=== PATIENT | female | born 1970 | race Caucasian/White ===

== ENCOUNTER 2020-06-05 08:44 | Emergency (ER) | payer BC, SELFPAY ==
[2020-06-05 09:15] VITALS: BP 142/82; PULSE 85; RESP 24; TEMP 36.7; O2SAT 98
--- NOTE | 2020-06-05 09:43 | ED.ABDPAIN ---
HPI - Abdominal Pain General Chief Complaint: Upper Respiratory Infection Stated Complaint: stomach pains radiating to right side Time Seen by Provider: 06/05/20 09:35 Source: patient Mode of arrival: ambulatory Limitations: no limitations History of Present Illness HPI narrative: Joyce Hodge is a 50-year-old female who receives no medical care who comes to the [facility] with right upper quadrant tenderness that radiates to her back and nausea and vomiting that started at 6 PM last night. Her tenderness is a 9 out of 10 she is afebrile currently blood pressure is elevated but denies any treatment for hypertension Related Data Home Medications Medication Instructions Recorded Confirmed No Home Medications 06/05/20 06/05/20 Allergies Allergy/AdvReac Type Severity Reaction Status Date / Time cephalexin Allergy Mild Unknown Verified 06/05/20 09:22 Penicillins Allergy Mild Unknown Verified 06/05/20 09:22 Review of Systems Review of Systems: Narrative: CONSTITUTIONAL: Denies fever, chills, sweats. EYES: Denies visual changes, redness, discharge. ENT: Denies rhinorrhea, congestion, sore throat, otalgia. CARDIOVASCULAR: Denies chest pain, palpitations, edema. RESPIRATORY: Denies dyspnea, wheezing, cough GASTROINTESTINAL has abdominal pain, has nausea, has vomiting, has diarrhea. Right upper quadrant abdominal pain that radiates to the right back GENITOURINARY: Denies dysuria, hematuria, abnormal discharge SKIN: Denies rash or itching. NEUROLOGIC: Denies numbness, or focal weakness. PSYCHIATRIC: Denies anxiety or depression. [facility] Past Medical History Medical History No acute medical problems Family History Family History (Updated 06/05/20 @ 09:45 by Khloe Casey CNP) Other No acute medical problems Social History Social History (Updated 06/05/20 @ 09:46 by Khloe Casey CNP) Smoking status: Never smoker Alcohol intake: current Comments At time of signature, I agree with nursing past medical, surgical, social and family history. There is no relevant family history pertinent to the presenting complaint. Exam Narrative: Exam Narrative: GENERAL: This is a well-nourished, well-developed patient, patient appears to be in pain HEAD: normocephalic, atraumatic. EYES: Sclera clear/white. Vision is grossly intact. EARS: External ears normal, auditory canals clear and without drainage, TMs normal without perforation. Hearing grossly intact. NOSE: External nose normal without nasal discharge, nares without redness, no rhinorrhea. THROAT: Mucous membranes moist, posterior pharynx pink NECK: Neck supple, non-tender CARDIOVASCULAR: Regular rate and rhythm without murmurs, gallops, or rubs. RESPIRATORY: Clear to auscultation. Breath sounds equal bilaterally. No wheezes, rales, or rhonchi. GASTROINTESTINAL: Abdomen soft, 9/10 pain on palpation with right CVA tender SKIN: warm, intact with no suspicious lesions or rash, good texture and turgor. NEURO: awake, alert, and oriented to person, place and time. There were no obvious focal neurologic abnormalities. Steady gait EXTREMITIES: Normal range of motion. BACK: Nontender without deformity Course Course Emergency Course: Right upper quadrant abdominal pain that radiates to the back UA is negative, but is negative Patient be transferred to the emergency room for further evaluation Vital Signs Vital signs: Vital Signs Temperature 98.1 F 06/05/20 09:15 Pulse Rate 85 06/05/20 09:15 Respiratory Rate 24 H 06/05/20 09:15 Blood Pressure 142/82 H 06/05/20 09:15 Pulse Oximetry 98 06/05/20 09:15 Temperature 98.1 F 06/05/20 09:15 Pulse Rate 85 06/05/20 09:15 Respiratory Rate 24 H 06/05/20 09:15 Blood Pressure 142/82 H 06/05/20 09:15 Pulse Oximetry 98 06/05/20 09:15 MDM - Abdominal Pain Lab Data Labs: Urine Glucose Negative
== END 2020-06-05 10:00 | disposition short-term general hospital (02) ==
PROVIDERS: Emergency Provider Nurse Practitioner
DX: R10.11 Right upper quadrant pain (principal); Z20.822 Contact with and (suspected) exposure to COVID-19
CPT/HCPCS: 81003; 87426; 99213; C9803; G0463

== ENCOUNTER 2020-06-05 10:46 | Observation (INO) | payer BC, SELFPAY ==
--- NOTE | ~2020-06-05 | CT_ITS ---
EXAMINATION: CT abdomen pelvis w con EXAM DATE: 06/05/2020 12:24 INDICATION: Right upper quadrant pain. TECHNIQUE: Spiral CT of the abdomen and pelvis was performed following intravenous injection of 100 m L Omnipaque 350. Axial, coronal and sagittal images were reviewed. The dose-length product (DLP) fo r this examination was 805.37 mGy-cm. The exposure was tailored according to patient size (auto mA e xposure control), and iterative reconstruction (ASIR) was used as additional dose reduction technique . There is no prior study for comparison. FINDINGS: The liver, spleen, adrenal glands and pancreas are unremarkable. There is 3 cm gallstone i n the gallbladder neck. There is mildly indistinct gallbladder wall without pneumatosis. Gallbladder is moderately distended. Possible trace fluid between the gallbladder and liver. Possible acute hernando cystitis. Portal and splenic veins are patent. Kidneys enhance symmetrically. There is no hydronep hrosis. The uterus is not identified and has likely been surgically resected. The bladder is unrem arkable. There is no retroperitoneal or pelvic lymphadenopathy. There is mild scattered arterioscl erotic disease. Appendix is located below the right liver lobe, near the gallbladder, but is unremarkable. The stoma ch and small bowel are unremarkable. There is mild sigmoid colonic diverticulosis. There is no adjac ent inflammatory change to suggest diverticulitis. There is expected amount of colonic stool. No fr ee intraperitoneal gas. The heart is normal in size. There are no pericardial or pleural effusions . There is left lower lobe nodule measuring 1.1 cm, with central calcification, granuloma or hamarto ma. Several smaller satellite granulomata. There are no osteoblastic or osteolytic lesions identifie d. IMPRESSION: 1. Cholelithiasis and possible acute cholecystitis. Clinical correlation, consider ultrasound. 2. Mild sigmoid diverticulosis. Reviewed, dictated and finalized at location [facility]. DYER RECESSED VAT IMPRESSION: 1. Cholelithiasis and possible acute cholecystitis. Clinical correlation, cons ider ultrasound. 2. Mild sigmoid diverticulosis.
--- NOTE | ~2020-06-05 | US_ITS ---
US abdomen limited DATE: 06/05/2020 13:07 INDICATION: Right upper quadrant abdominal pain, emesis TECHNIQUE: Real-time imaging of liver, pancreas, gallbladder areas COMPARISON: June 05, [address] abdomen pelvis FINDINGS: No hepatic or pancreatic space-occupying mass lesion is evident. Normal hepatopedal portal venous flow direction. There is a fixed approximately 2 x 2.7 cm filling defect of the neck of the gallbladder, which shadow ing, consistent with large gallstone. There is comet tail artifact suggesting adenomyomatosis of the gallbladder. Gallbladder wall measures in excess of 4 mm maximal thickness. Negative sonographic Murp hy's sign. However, the patient is reportedly on pain medication which may invalidate this time. The common bile duct measures 5.6 mm, normal. IMPRESSION: 2.6 cm stone in gallbladder neck, gallbladder wall thickening. Consider acute cholecystit is. If further evaluation for acute cholecystitis is desired, consider radionuclide hepatobiliary scan. Comment tail artifact, which may be consistent with adenomyomatosis of the gallbladder Reviewed, dictated and finalized at [facility]. Reviewed, dictated and finalized at location A. IAL LOAN OFFICER IMPRESSION: 2.6 cm stone in gallbladder neck, gallbladder wall thickening. Cons ider acute cholecystitis. If further evaluation for acute cholecystitis is desired, consider radionuclide hepatobiliary scan. Comment tail artifact, which may be consistent with adenomyomatosis of the gall bladder
[2020-06-05 10:49] VITALS: BP 147/79; PULSE 80; RESP 18; TEMP 36; O2SAT 100
[2020-06-05 11:05] LABS: Basophils Absolute Auto 0.1 K/mm3 (0.0-0.1); Basophils Percent Auto 0.8 % (0.2-1.2); Eosinophils Percent Auto 0.5 % (0-4.4); Hematocrit 41.6 % (37.0-47.0); Hemoglobin 13.6 g/dL (12.0-15.0); Immature Granulocyte Absolute 0.06 K/mm3 (0.00-0.031); Immature Granulocyte Percent A 0.8 % (0-0.5); Lymphocytes Absolute Auto 0.99 K/mm3 (0.9-3.2); Lymphocytes Percent Auto 12.6 % (18.3-44.2); Mean Corpuscular HGB Conc 32.7 g/dl (32-36); Mean Corpuscular Hemoglobin 28.2 pg (26-34); Mean Corpuscular Volume 86.1 fl (80-100); Mean Platelet Volume 9.8 fl (7.4-10.4); Monocytes Absolute Auto 0.6 K/mm3 (0.1-0.6); Monocytes Percent Auto 7.1 % (2.6-8.5); Neutrophils Absolute Auto 6.1 K/mm3 (1.3-6.7); Neutrophils Percent Auto 78.2 % (45.5-73.1); Platelet Count Result 313 k/mm3 (150-375); Red Blood Count 4.83 M/mm3 (4.2-5.4); Red Cell Distribution Width 13.6 % (11.5-14.5); White Blood Count 7.9 K/mm3 (4.5-10.0)
[2020-06-05 11:18] LABS: Alanine Aminotransferase 19 U/L (4-35); Albumin Level 4.5 g/dL (3.5-5.1); Alkaline Phosphatase 66 U/L (38-126); Anion Gap 7 mmol/L (8-16); Aspartate Amino Transferase 23 U/L (14-36); Bilirubin,Total 0.4 mg/dL (0.2-1.3); Blood Urea Nitrogen 10 mg/dL (7-17); Calcium 9.3 mg/dL (8.4-10.2); Carbon Dioxide 26 mmol/L (22-30); Chloride 105 mmol/L (98-107); Estimated CRCL calculation 81 ml/min; Estimated Glomerular Filt Rate > 60; Glucose 120 mg/dL (65-105); Lipase 96 U/L (23-300); Potassium 4.1 mmol/L (3.4-5.0); Sodium 138 mmol/L (137-145)
--- NOTE | 2020-06-05 11:29 | ED.ABDPAIN ---
HPI - Abdominal Pain General Chief Complaint: Abdominal Pain Stated Complaint: RUQ pain Time Seen by Provider: 06/05/20 11:28 Source: patient Limitations: no limitations History of Present Illness HPI narrative: Patient is 50 years old white female presents with right upper quadrant pain associated with nausea, vomiting and the diarrhea started last night at 6 PM. Patient reported that the pain gets worse with eating or any movement, get better probably if she remaining is stable. Patient denies any fever, chills, COVID-19 infection or exposure to anybody known having COVID-19. History of hysterectomy. On no medications. Patient does not smoke or drink or uses marijuana. Related Data Home Medications Medication Instructions Recorded Confirmed No Home Medications 06/05/20 06/05/20 Allergies Allergy/AdvReac Type Severity Reaction Status Date / Time cephalexin Allergy Mild Unknown Verified 06/05/20 10:52 Penicillins Allergy Mild Unknown Verified 06/05/20 10:52 Review of Systems Review of Systems: Narrative: CONSTITUTIONAL: Denies fever, chills, or sweats. EYES: Denies visual changes, redness, or discharge. ENT: Denies rhinorrhea, congestion, sore throat, or otalgia. CARDIOVASCULAR: Denies chest pain, palpitations, or edema. RESPIRATORY: Denies cough or dyspnea. GASTROINTESTINAL: Denies abdominal pain, nausea, vomiting, or diarrhea. GENITOURINARY: Denies dysuria or hematuria. SKIN: Denies rash or itching. MUSCULOSKELETAL: Denies back pain, joint pain, or myalgia. NEUROLOGIC: Denies headache, numbness, or weakness. PSYCHIATRIC: Denies anxiety or depression. PMFSH Past Medical History Medical History No acute medical problems Family History Family History Other No acute medical problems Social History Social History Smoking status: Never smoker Alcohol intake: current Exam Narrative: Exam Narrative: General appearance: Well-developed, well-nourished Skin: Normal color Head: Normocephalic, nontraumatic Eyes: Clear conjunctiva ENT: Oropharynx normal, ears normal, nose normal Neck: Supple, nontender Chest and respiratory: Airway patent, no respiratory distress, no accessory muscle use Heart: Regular rate/rhythm Abdomen: Soft, diffuse tenderness epigastric and right upper quadrant, no organomegaly, quiet bowel sounds Vascular: Normal peripheral pulses, normal capillary refill. Musculoskeletal: Normal range of motion, nontender back Neurologic: Alert and oriented ?3, [employer] is normal as tested, no gross motor deficit Course Course Emergency Course: Improving/stable Consultations Consultation #1: Dr. Hung Date: 06/05/20 Time: 14:29 Vital Signs Vital signs: Vital Signs Temperature 36.0 C L 06/05/20 10:49 Pulse Rate 80 06/05/20 10:49 Respiratory Rate 18 06/05/20 10:49 Blood Pressure 147/79 H 06/05/20 10:49 Pulse Oximetry 100 06/05/20 10:49 Temperature 36.0 C L 06/05/20 10:49 Pulse Rate 80 06/05/20 14:12 Respiratory Rate 16 06/05/20 14:12 Blood Pressure 149/85 H 06/05/20 14:12 Pulse Oximetry 100 06/05/20 14:12 MDM - Abdominal Pain MDM Narrative Medical decision making narrative: Patient presents with epigastric, right upper quadrant pain with nausea and vomiting. Labs, CT abdomen pelvis with IV contrast, IV morphine and Zofran and a fluid ordered. Pancreatitis, cholecystitis, gastroenteritis and diverticulitis are my concern. Further plan to follow Differential Diagnosis Differential diagnosis: Likely abdominal pain, diverticulitis, ga
[2020-06-05] MEDS: SODIUM CHLORIDE 0.9% IV 1,000 ML 999 ML IV CONT (11:40)
[2020-06-05 11:43] LABS: Add Urine Microscopic? YES; Appearance Urine Cloudy (Clear); Bacteria Urine 4+ /hpf; Bilirubin Urine Negative (Negative); Blood Urine Negative (Negative); Color Urine Yellow (Yellow); Glucose Urine UA Negative (Negative); Ketones Urine Negative (Negative); Leukocyte Esterase Ur Negative LEU/UL (Negative); Mucus Urine Rare /lpf; Nitrate Urine Negative (Negative); Protein Urine Negative (Negative); RBC Urine 0-2 /hpf (0-2); Specific Grav Ur 1.023 (1.001-1.035); Squamous Epithelial Cell Urine Many /hpf (Few); Urobilinogen Urine Negative mg/dL (<2.0)
[2020-06-05] MEDS: MORPHINE SULFATE (*CRX) 4 MG/ML INJ IV PUSH ×2 (11:47→15:42)
[2020-06-05] MEDS: ONDANSETRON INJ 4 MG/2 ML VIAL IV PUSH (11:47)
[2020-06-05 12:47] VITALS: BP 143/80; PULSE 72; RESP 16; O2SAT 97
[2020-06-05 14:12] VITALS: BP 149/85; PULSE 80; RESP 16; O2SAT 100
[2020-06-05] MEDS: metroNIDAZOLE 500 MG/ISO 100ML 500 MG/100 ML BAG 100 MG IVPB (14:12)
[2020-06-05 15:18] VITALS: BP 131/85; PULSE 81; RESP 16; O2SAT 98
[2020-06-05] MEDS: SODIUM CHLORIDE 0.9% IV 1,000 ML 125 ML IV CONT (16:12)
--- NOTE | 2020-06-05 16:18 | PM.IMHP ---
H&P: HPI History of Present Illness Date/Time: 06/05/20 16:18 Chief Complaint: Epigastric abdominal pain, vomiting Narrative: Joyce Lo is a 50 year old female with no significant past medical history, who presented to the ER with complaints of epigastric abdominal pain radiating to the RUQ and back. She reports a sudden onset of this pain around 6 pm last night, not long after eating fried fish and onion rings for dinner. She had associated nausea, vomiting, and diarrhea. She reports pain improved overnight. She then drank liquids upon waking this morning and the severe abdominal pain returned and she immediately vomited. She then presented to the ER for evaluation. CT Scan of the abdomen and pelvis showed a 3 cm gallstone in the gallbladder neck with mildly indistinct gallbladder wall without pneumatosis, moderate gallbladder distention, and possible trace fluid between the gallbladder and liver. Abdominal ultrasound showed a 2.6 cm stone in gallbladder neck and gallbladder wall thickening. Labs were unremarkable. Our service was contacted by the ER physician for surgical evaluation of acute cholecystitis. Vital signs are stable in the ER. The patient is now seen in the ER. She reports that she is still having abdominal pain that is mild, but becomes more severe with any movement or palpation. Denies fever or chills. No other complaints at this time. Review of Systems Review of Systems: All systems reviewed & are unremarkable except as noted in HPI and below Constitutional: Constitutional: Reports as per HPI, Denies chills, Denies fatigue, Denies fever(s), Denies headache(s) and Denies weakness Eyes: Eyes: Reports no additional eye complaints, Denies change in vision, Denies dry eyes and Denies eye pain ENT: Reports system reviewed and no additional complaints, except as documented, Denies dysphagia, Denies dizziness, Denies headache(s) and Denies hearing loss Cardiovascular: Cardiovascular: Reports no additional cardiovascular complaints, Denies chest pain, Denies pedal edema, Denies leg edema, Denies lightheadedness, Denies radiating jaw, neck or arm pain and Denies dyspnea Respiratory: Respiratory: Reports no additional respiratory complaints, Denies cough, Denies hemoptysis, Denies dyspnea and Denies wheezing Gastrointestinal: Gastrointestinal: Reports as per HPI, Reports no additional gastrointestinal complaints, Reports abdominal pain, Denies melena, Denies bloating, Denies hematochezia, Reports diarrhea, Reports nausea and Reports vomiting Genitourinary: Genitourinary: Denies hematuria and Denies dysuria Musculoskeletal: Musculoskeletal: Reports no additional musculoskeletal complaints, Denies abnormal gait, Denies deformity, Denies joint swelling, Denies numbness and Denies tingling Integumentary/Breasts: Skin/Breast: Denies new lesions, Denies rash and Denies wounds Neurologic: Reports system reviewed and no additional complaints, except as documented, Denies abnormal gait, Denies dizziness, Denies headache(s), Denies numbness, Denies tingling and Denies weakness Psychiatric: Psychiatric: Reports no additional psychiatric complaints, Denies anxiety and Denies depression [facility] Past Medical History Medical History No acute medical problems Surgical History Surgical History History of partial hysterectomy Open partial hysterectomy in 2006 Family History Family History Mother Gallbladder disease Other No acute medical problems Social History Social History Smoking status: Former smoker Alcohol intake: never Substance use: never Living arrangements: with friend(s) Additional living arrangements comments: Patient lives at home with her boyfriend. She is not and has no children. Occupatio
--- NOTE | 2020-06-05 16:20 | ADMGEN ---
This patient, Joyce Lo, was admitted to Medical Room 242-. Patient/family oriented to hospital policies and general routines including ID bracelet, bed and alarms, visiting hours, pain management, procedures, bathroom and other care routines, personal items, smoking policy, room service/diet, and visiting hours. Information on how to activate the Rapid Response Team has been discussed. Patient/Family are encouraged to report perceived risks to care and to ask questions if they do not understand what they are told or what they should do.
--- NOTE | 2020-06-05 16:28 | WPDANESEPPF ---
Anes - Initial Pre Proc Eval Procedure: Operation Date: 06/06/20 09:30 Proposed Procedures p Laparoscopic Cholecystectomy - Chasity Hung MD Date/Time: 06/05/20 16:28 Surgeon: Chasity Hung MD Pre Op Diagnosis: Cholecystitis Patient Data Age: 50 Gender: F Height: 1.57 m Weight: 83.9 kg Last Vital Signs Temp 36.0 C L 06/05/20 10:49 Pulse 81 06/05/20 15:18 Resp 16 06/05/20 15:18 BP 131/85 06/05/20 15:18 Pulse Ox 98 06/05/20 15:18 Allergies Allergy/AdvReac Type Severity Reaction Status Date / Time cephalexin Allergy Mild Unknown Verified 06/05/20 17:07 Penicillins Allergy Mild Unknown Verified 06/05/20 17:07 Home Medications Medication Instructions Recorded Confirmed Type No Home Medications 06/05/20 06/05/20 History Laboratory Tests 06/05/20 06/05/20 06/05/20 10:56 10:56 11:26 WBC 7.9 K/mm3 K/mm3 (4.5-10.0) RBC 4.83 M/mm3 M/mm3 (4.2-5.4) Hgb 13.6 g/dL g/dL (12.0-15.0) Hct 41.6 % % (37.0-47.0) MCV 86.1 fl fl (80-100) MCH 28.2 pg pg (26-34) MCHC 32.7 g/dl g/dl (32-36) RDW 13.6 % % (11.5-14.5) Plt Count 313 k/mm3 k/mm3 (150-375) MPV 9.8 fl fl (7.4-10.4) Immature Gran % (Auto) 0.8 % H % (0-0.5) Neut % (Auto) 78.2 % H % (45.5-73.1) Lymph % (Auto) 12.6 % L % (18.3-44.2) [place] % (Auto) 7.1 % % (2.6-8.5) Eos % (Auto) 0.5 % % (0-4.4) Baso % (Auto) 0.8 % % (0.2-1.2) Lymph # (Auto) 0.99 K/mm3 K/mm3 (0.9-3.2) [place] # (Auto) 0.6 K/mm3 K/mm3 (0.1-0.6) Eos # (Auto) 0.0 K/mm3 K/mm3 (0-0.3) Baso # (Auto) 0.1 K/mm3 K/mm3 (0.0-0.1) Abs Immat Gran (auto) 0.06 K/mm3 H K/mm3 (0.00-0.031) Absolute Neuts (auto) 6.1 K/mm3 K/mm3 (1.3-6.7) Absolute Nucleated RBC 0.0 K/mm3 K/mm3 (0.0-0.012) Nucleated RBC % 0.0 % % (0.0-0.2) Sodium 138 mmol/L mmol/L (137-145) Potassium 4.1 mmol/L mmol/L (3.4-5.0) Chloride 105 mmol/L mmol/L (98-107) Carbon Dioxide 26 mmol/L mmol/L (22-30) Anion Gap 7 mmol/L L mmol/L (8-16) BUN 10 mg/dL mg/dL (7-17) Creatinine 0.70 mg/dL mg/dL (0.7-1.0) Estim Creat Clear Calc 81 ml/min ml/min Estimated GFR > 60 (59 - ) Glucose 120 mg/dL H mg/dL (65-105) Calcium 9.3 mg/dL mg/dL (8.4-10.2) Total Bilirubin 0.4 mg/dL mg/dL (0.2-1.3) AST 23 U/L U/L (14-36) ALT 19 U/L U/L (4-35) Alkaline Phosphatase 66 U/L U/L (38-126) Total Protein 8.0 g/dL g/dL (6.3-8.2) Albumin 4.5 g/dL g/dL (3.5-5.1) Lipase 96 U/L U/L (23-300) Urine Color Yellow (Yellow) Urine Appearance Cloudy H (Clear) Urine pH 6.0 (5.0-9.0) Ur Specific [place] 1.023 (1.001-1.035) Urine Protein Negative mg/dL mg/dL (Negative) Urine Glucose (UA) Negative mg/dL mg/dL (Negative) Urine Ketones Negative mg/dL mg/dL (Negative) Ur Blood (Man) Negative (Negative) Urine Nitrate Negative (Negative) Urine Bilirubin Negative (Negative) Urine Urobilinogen Negative mg/dL mg/dL (<2.0) Leukocyte Esterase Rfl Negative KENJI/UL KENJI/UL (Negative) Urine RBC 0-2 /hpf /hpf (0-2) Urine WBC 4-6 /hpf H /hpf Ur Squamous Epith Cells Many /hpf H /hpf (Few) Urine Bacteria 4+ /hpf H /hpf Hyaline Casts 1-2 /lpf /lpf (None) Urine Mucus Rare /lpf /lpf Patient hx anesthesia problems: none Family hx anesthesia problems: none PMFSH Past Medical History Medical History Asthma No acute medical problems Obes
[2020-06-05 20:00] VITALS: PULSE 81; RESP 16; O2SAT 98
[2020-06-05 22:00] VITALS: BP 128/70; PULSE 86; RESP 18; TEMP 36.6; O2SAT 96
[2020-06-06] VITALS (10 sets, daily range): BP systolic 114–135; BP diastolic 65–81; PULSE 79–97; RESP 13–28; TEMP 36.3–36.9; O2SAT 92–97
[2020-06-06] MEDS: SODIUM CHLORIDE 0.9% IV 1,000 ML 125 ML IV CONT ×2 (01:45→15:06)
--- NOTE | 2020-06-06 07:11 | WPDANESEPP ---
Anes - Eval Pre Procedure Procedure: Operation Date: 06/06/20 10:00 Proposed Procedures p Laparoscopic Cholecystectomy - Chasity Hung MD Date/Time: 06/06/20 07:11 Pre Op Diagnosis: Cholecystitis Patient Data Age: 50 Gender: F Height: 1.57 m Weight: 83.9 kg Last Vital Signs Temp 36.9 C 06/06/20 06:00 Pulse 97 06/06/20 06:00 Resp 18 06/06/20 06:00 BP 114/65 06/06/20 06:00 Pulse Ox 97 06/06/20 06:00 Allergies Allergy/AdvReac Type Severity Reaction Status Date / Time cephalexin Allergy Mild Unknown Verified 06/05/20 17:07 Penicillins Allergy Mild Unknown Verified 06/05/20 17:07 Home Medications Medication Instructions Recorded Confirmed Type No Home Medications 06/05/20 06/05/20 History Laboratory Tests 06/05/20 06/05/20 06/05/20 10:56 10:56 11:26 WBC 7.9 K/mm3 K/mm3 (4.5-10.0) RBC 4.83 M/mm3 M/mm3 (4.2-5.4) Hgb 13.6 g/dL g/dL (12.0-15.0) Hct 41.6 % % (37.0-47.0) MCV 86.1 fl fl (80-100) MCH 28.2 pg pg (26-34) MCHC 32.7 g/dl g/dl (32-36) RDW 13.6 % % (11.5-14.5) Plt Count 313 k/mm3 k/mm3 (150-375) MPV 9.8 fl fl (7.4-10.4) Immature Gran % (Auto) 0.8 % H % (0-0.5) Neut % (Auto) 78.2 % H % (45.5-73.1) Lymph % (Auto) 12.6 % L % (18.3-44.2) [place] % (Auto) 7.1 % % (2.6-8.5) Eos % (Auto) 0.5 % % (0-4.4) Baso % (Auto) 0.8 % % (0.2-1.2) Lymph # (Auto) 0.99 K/mm3 K/mm3 (0.9-3.2) [place] # (Auto) 0.6 K/mm3 K/mm3 (0.1-0.6) Eos # (Auto) 0.0 K/mm3 K/mm3 (0-0.3) Baso # (Auto) 0.1 K/mm3 K/mm3 (0.0-0.1) Abs Immat Gran (auto) 0.06 K/mm3 H K/mm3 (0.00-0.031) Absolute Neuts (auto) 6.1 K/mm3 K/mm3 (1.3-6.7) Absolute Nucleated RBC 0.0 K/mm3 K/mm3 (0.0-0.012) Nucleated RBC % 0.0 % % (0.0-0.2) Sodium 138 mmol/L mmol/L (137-145) Potassium 4.1 mmol/L mmol/L (3.4-5.0) Chloride 105 mmol/L mmol/L (98-107) Carbon Dioxide 26 mmol/L mmol/L (22-30) Anion Gap 7 mmol/L L mmol/L (8-16) BUN 10 mg/dL mg/dL (7-17) Creatinine 0.70 mg/dL mg/dL (0.7-1.0) Estim Creat Clear Calc 81 ml/min ml/min Estimated GFR > 60 (59 - ) Glucose 120 mg/dL H mg/dL (65-105) Calcium 9.3 mg/dL mg/dL (8.4-10.2) Total Bilirubin 0.4 mg/dL mg/dL (0.2-1.3) AST 23 U/L U/L (14-36) ALT 19 U/L U/L (4-35) Alkaline Phosphatase 66 U/L U/L (38-126) Total Protein 8.0 g/dL g/dL (6.3-8.2) Albumin 4.5 g/dL g/dL (3.5-5.1) Lipase 96 U/L U/L (23-300) Urine Color Yellow (Yellow) Urine Appearance Cloudy H (Clear) Urine pH 6.0 (5.0-9.0) Ur Specific [place] 1.023 (1.001-1.035) Urine Protein Negative mg/dL mg/dL (Negative) Urine Glucose (UA) Negative mg/dL mg/dL (Negative) Urine Ketones Negative mg/dL mg/dL (Negative) Ur Blood (Man) Negative (Negative) Urine Nitrate Negative (Negative) Urine Bilirubin Negative (Negative) Urine Urobilinogen Negative mg/dL mg/dL (<2.0) Leukocyte Esterase Rfl Negative KENJI/UL KENJI/UL (Negative) Urine RBC 0-2 /hpf /hpf (0-2) Urine WBC 4-6 /hpf H /hpf Ur Squamous Epith Cells Many /hpf H /hpf (Few) Urine Bacteria 4+ /hpf H /hpf Hyaline Casts 1-2 /lpf /lpf (None) Urine Mucus Rare /lpf /lpf Patient hx anesthesia problems: none Family hx anesthesia problems: none PMFSH Past Medical History Medical History Asthma No acute medical problems Obesity (BMI 30-39.9) Smoking history
--- NOTE | 2020-06-06 08:22 | WPDHPUPDATE1 ---
History and Physical Update Update Date/Time: 06/06/20 08:22 History and Physical has been reviewed, including an updated exam of the patient. There are NO changes in the patient's condition. Risks, benefits, and alternatives have been discussed and questions answered. Patient agrees to proceed with procedure.
--- NOTE | 2020-06-06 08:38 | PC.NURSE ---
To OR per bed, IV 20 gauge right antecubital saline locked . Report given to HELENA Rapp.
[2020-06-06] MEDS: LACTATED RINGERS 1,000 ML 30 ML IV CONT ×2 (09:15→10:57)
[2020-06-06] MEDS: CLINDAMYCIN 900 MG/D5W 50 ML 900 MG/50 ML PIGGYBACK 50 MG IVPB (09:43)
[2020-06-06] MEDS: BUPIVACAINE/EPINEPHRINE 0.25% 50 ML VIAL 30 ML INFILTRATE (10:03)
--- NOTE | 2020-06-06 10:56 | PM.PROC ---
Procedure Note - Detailed Date of procedure: 06/06/20 Pre-op diagnosis: Cholecystitis Post-op diagnosis: other (hydrops cholecystitis) Procedure performed: laparoscopic cholecystectomy Description of procedure: The patient was taken to the operating room placed in the supine position. After adequate induction of general anesthesia, the patient was prepped and draped in normal sterile fashion. A time-out was then performed to verify the patient's identity as well as the procedure being performed. I then made a 5 mm incision in the infraumbilical region. Through this, a Veress needle was placed into the peritoneal cavity and CO2 gas was then insufflated. After adequate pneumoperitoneum was achieved, the Veress needle was removed and a 5 mm trocar was placed through this incision. I then placed the laparoscope through this trocar site and under direct visualization placed a further 12 mm subxiphoid port as well as 2 additional 5 mm ports in the right upper abdomen. The gallbladder was then identified and was noted to be very distended and inflamed. Given this, I decompressed the gallbladder with an ovarian needle and it was noted that the patient had hydrops cholecystitis. After decompression, I was able to place a grasper at the dome of the gallbladder and this was retracted anterior and cephalad up over the liver. A 2nd retractor was then placed at the infundibulum and retracted laterally, this allowed visualization of the triangle of Calot. It was noted that there was a large impacted stone at the neck of the gallbladder. I then was able to visualize the cystic duct in its entirety from its proximal insertion into the gallbladder, to its distal junction with the common hepatic/common bile duct junction. At this point, I carefully skeletonized the proximal cystic duct with the [place] dissector. I then clipped and transected the proximal cystic duct. Next I visualized the cystic artery. Again the artery was skeletonized, clipped, and transected. I then used the Bovie cautery to take down the peritoneal attachments of the gallbladder off the liver bed. This was quite tedious as there was significant inflammation and oozing during dissection. At one point, an arterial bleeder was encountered. I was able to control this bleeding with additional clips and pressure. Once the gallbladder specimen was completely detached, an endo-pouch was placed through the 12 mm port site. I then placed the gallbladder specimen into the Endo pouch and removed the endo-pouch from the 12 mm port site. The specimen will now be sent to pathology for further review. I then copiously irrigated the right upper quadrant. Hemostasis was noted in the liver bed, the clips were noted to be in good position on both the cystic duct stump and the cystic artery stump. No other pathology was noted in the right upper quadrant. Given the oozing and inflammation, I placed Surgicel in the gallbladder fossa. I then moved the laparoscope to the subxiphoid port. No iatrogenic injury or other pathology was noted in the lower abdomen. At this point, the abdomen was desufflated and all ports removed. The fascia of the 12 mm subxiphoid port was closed with a 0 Vicryl figure of 8 suture. All port sites were then closed with 4.O Monocryl subcuticular sutures. Dermabond was placed on each incision. The patient tolerated the procedure well, was extubated in the operating room postoperative and will be transferred to the recovery room in stable condition. Implants: none Anesthesia: GETA Surgeon: Chasity Hung MD Estimated blood loss (mL): 100 Drains: No Packing: No Pathology: yes Complications: No immediate complications Condition: stable Disposition: PACU Findings: acute hydrops cholecystitis
--- NOTE | 2020-06-06 11:02 | PM.DS ---
DS: Admitting Diagnosis Admitting Diagnosis Admitting Diagnosis: acute cholecystitis DS: Discharge Diagnosis Discharge Diagnosis (1) Acute cholecystitis: Code(s): K81.0 - Acute cholecystitis Status: Acute Assessment and Plan: s/p lap hernando, doing well, routine postop care, home c po analgesia, f/u 2 wks DS: Summary Hospital Course Reason for hospitalization: acute cholecystitis Hospital Course: Pt is a 50 y/o F presenting to ED c/o severe upper abd pain assoc c nausea, bloating. Workup in ED, including imaging, significant for acute cholecystitis. Pt admitted and started on IV abx. Upon eval by surgery, decision made to proceed c urgent cholecystectomy. Pt had lap hernando, please see full op report for details. Postop, pt did well. Pt suzette diet and ambulating s issue. Pt will be dc'd home c instructions for routine postop care and po analgesia. Pt to f/u in 2 wks. Status at Discharge Functional status at discharge: independent ambulation Overall status at discharge: patient is progressing back to baseline Time Spent with Patient Time attestation: Total time spent providing and/or coordinating discharge services: Time spent: Less than 30 minutes Exam Const: General: cooperative, comfortable and no acute distress Resp: Auscultation: clear to auscultation bilaterally Cardio: Rate: regular rate Rhythm: regular rhythm GI: Inspection: normal to inspection, distended and incision GI Palp: Yes abdominal tenderness, Yes Soft to palpation, Yes Tenderness to palpation present (GI) and No Guarding due to palpation present (GI) Other: S, sl dist, taylor TTP, incisions C/D/I DS: Data Data Completed and Pending Pending studies at discharge: Pending at discharge 06/06/20 09:54 Surgical [PTH] Routine Labs on day of discharge: Labs from last 24 hours 06/05/20 06/05/20 06/05/20 11:26 10:56 10:56 WBC 7.9 RBC 4.83 Hgb 13.6 Hct 41.6 MCV 86.1 MCH 28.2 MCHC 32.7 RDW 13.6 Plt Count 313 MPV 9.8 Immature Gran % (Auto) 0.8 H Neut % (Auto) 78.2 H Lymph % (Auto) 12.6 L [place] % (Auto) 7.1 Eos % (Auto) 0.5 Baso % (Auto) 0.8 Lymph # (Auto) 0.99 [place] # (Auto) 0.6 Eos # (Auto) 0.0 Baso # (Auto) 0.1 Abs Immat Gran (auto) 0.06 H Absolute Neuts (auto) 6.1 Absolute Nucleated RBC 0.0 Nucleated RBC % 0.0 Sodium 138 Potassium 4.1 Chloride 105 Carbon Dioxide 26 Anion Gap 7 L BUN 10 Creatinine 0.70 Estim Creat Clear Calc 81 Estimated GFR > 60 Glucose 120 H Calcium 9.3 Total Bilirubin 0.4 AST 23 ALT 19 Alkaline Phosphatase 66 Total Protein 8.0 Albumin 4.5 Lipase 96 Urine Color Yellow Urine Appearance Cloudy H Urine pH 6.0 Ur Specific [place] 1.023 Urine Protein Negative Urine Glucose (UA) Negative Urine Ketones Negative Ur Blood (Man) Negative Urine Nitrate Negative Urine Bilirubin Negative Urine Urobilinogen Negative Leukocyte Esterase Rfl Negative Urine RBC 0-2 Urine WBC 4-6 H Ur Squamous Epith Cells Many H Urine Bacteria 4+ H Hyaline Casts 1-2 Urine Mucus Rare Discharge Plan Discharge Attending physician on discharge: Chasity Hung Consulting providers: Riley Trivedi Discharging Clinician: Chasity Hung Anticipated Discharge Date/Time: 06/06/20 15:00 Patient Disposition: Home, Self-Care Activity: other - see discharge instructions Diet: as tolerated and regular Wound Care Instructions: other - see discharge instructions Discharge Instructions: DISCHARGE INSTRUCTION SHEET FOR HERNIA, GALLBLADDER AND APPENDIX SURGERIES DR. HUNG PATIENT TO TAKE HOME 1. May shower in 24 hours, no soaking in bath x 2weeks. 2. Call office for: Wound increasingly painful or bleeding Vomiting Fever of greater than 101 degrees 3. If no bowel movement for three days, take 1 oz. (30 ml) Mi
[2020-06-06] MEDS: fentaNYL CITRATE INJ (*CRX) 100 MCG/2 ML VIAL 25 MCG IV PUSH ×4 (11:29→11:55)
[2020-06-06] MEDS: MORPHINE SULFATE (*CRX) 4 MG/ML INJ IV PUSH (13:30)
== END 2020-06-06 17:47 | disposition home or self-care (01) ==
LOC: ANHED 14:34 → ANH2MED 15:18
PROVIDERS: Admitting Provider Surgery; Emergency Provider Emergency Medicine; Visit Provider Surgery
PROC: 0FT44ZZ Resection of Gallbladder, Percutaneous Endoscopic Approach (ICD-10-PCS; CPT 47562; principal; 2020-06-06 10:00)
DX: K80.62 Calculus of gallbladder and bile duct with acute cholecystitis without obstruction (principal); R10.11 Right upper quadrant pain; R11.2 Nausea with vomiting, unspecified; R19.7 Diarrhea, unspecified; K57.90 Diverticulosis of intestine, part unspecified, without perforation or abscess without bleeding; Z90.710 Acquired absence of both cervix and uterus; E66.9 Obesity, unspecified; Z68.33 Body mass index [BMI] 33.0-33.9, adult; Z87.891 Personal history of nicotine dependence
CPT/HCPCS: 47562; 36415; 74177; 76705; 80053; 81001; 83690; 85025; 88304; 96361; 96365; 96367; 96375; 96376; 99285; G0378; J0330; J0696; J1100; J2250; J2270; J2405; J2704; J2710; J3010; J7030; J7120; Q9967

== ENCOUNTER 2020-12-15 12:08 | Emergency (ER) | payer OTHER, BC, SELFPAY ==
--- NOTE | ~2020-12-15 | XR_ITS ---
EXAMINATION: XR ankle RT min 3V DATE: 12/15/2020 12:26 INDICATION: Right ankle injury and pain. TECHNIQUE: 4 views of right ankle were obtained. COMPARISON: Right ankle radiographs 10/22/2008 FINDINGS: There is an old ununited fracture of tip of the fibula. There is a transverse fracture defo rmity of medial malleolus. There is fixation of the talus with lateral screws and a reconstruction pl ate. There is moderate tibiotalar joint osteoarthritis. There is mild talonavicular joint osteoarthri tis. There are enthesophytes at the posterior and plantar aspects of calcaneal tuberosity. Ankle soft tissue swelling is noted. IMPRESSION: 1. Age-indeterminate transverse fracture deformity of medial malleolus. 2. Polyarticular osteoarthritis. Reviewed, dictated and finalized at location B.
[2020-12-15 12:09] VITALS: BP 146/86; PULSE 74; RESP 20; TEMP 36.5; O2SAT 98
--- NOTE | 2020-12-15 14:09 | ED.LOWEXIN ---
HPI - Extremity Injury (Lower) General Chief Complaint: Extremity Injury, Lower Stated Complaint: R ANKLE PAIN Time Seen by Provider: 12/15/20 14:08 Source: patient, EMS and RN notes reviewed Mode of arrival: EMS Limitations: no limitations History of Present Illness HPI Narrative: Patient stepped on a small box and somehow twisted the right ankle. History of right ankle surgery in the past. This happened at work. Related Data Home Medications Medication Instructions Recorded Confirmed No Home Medications 06/17/20 06/17/20 Allergies Allergy/AdvReac Type Severity Reaction Status Date / Time cephalexin Allergy Mild MOUTH Verified 12/15/20 14:46 BLISTERS Penicillins Allergy Mild Unknown Verified 12/15/20 14:46 Review of Systems Review of Systems: CONSTITUTIONAL: Denies fever, chills, or sweats. EYES: Denies visual changes, redness, or discharge. ENT: Denies rhinorrhea, congestion, sore throat, or otalgia. CARDIOVASCULAR: Denies chest pain, palpitations, or edema. RESPIRATORY: Denies cough or dyspnea. GASTROINTESTINAL: Denies abdominal pain, nausea, vomiting, or diarrhea. GENITOURINARY: Denies dysuria or hematuria. SKIN: Denies rash or itching. MUSCULOSKELETAL: Denies back pain, joint pain, or myalgia. NEUROLOGIC: Denies headache, numbness, or weakness. PSYCHIATRIC: Denies anxiety or depression. [facility] Past Medical History Medical History Asthma No acute medical problems Obesity (BMI 30-39.9) Smoking history UTI (urinary tract infection) Surgical History Surgical History History of hysterectomy History of partial hysterectomy Open partial hysterectomy in 2006 Hx laparoscopic cholecystectomy 06/06/20 Family History Family History Mother Gallbladder disease Other No acute medical problems Social History Social History Smoking status: Former smoker Alcohol intake: never Substance use: never Additional living arrangements comments: Patient lives at home with her boyfriend. She is not and has no children. Additional occupation/education comments: Works for [employer] in the [employer]. Gender identity (if verbalized by the patient): Female Spiritual care concerns: No Exam Narrative: General appearance: Well-developed, well-nourished Skin: Normal color Head: Normocephalic, nontraumatic Neck: Supple, nontender Chest and respiratory: Airway patent, no respiratory distress, no accessory muscle use Heart: Regular rate/rhythm Abdomen: Soft, nontender, no organomegaly, quiet bowel sounds Vascular: Normal peripheral pulses, normal capillary refill. Musculoskeletal: Right ankle exam showed surgical scar tissue, slightly swollen, diffusely tender, no deformity, limited range of motion Neurologic: Alert and oriented ?3, [employer] is normal as tested, no gross motor deficit Course Course Emergency Course: Stable Vital Signs Vital signs: Vital Signs Temperature 36.5 C 12/15/20 12:09 Pulse Rate 74 12/15/20 12:09 Respiratory Rate 20 12/15/20 12:09 Blood Pressure 146/86 H 12/15/20 12:09 Pulse Oximetry 98 12/15/20 12:09 Temperature 36.5 C 12/15/20 12:09 Pulse Rate 74 12/15/20 12:09 Respiratory Rate 20 12/15/20 12:09 Blood Pressure 146/86 H 12/15/20 12:09 Pulse Oximetry 98 12/15/20 12:09 MDM - Extremity Injury (Lower) MDM Narrative Medical decision making narrative: Sprain/strain versus fracture is my concern. X-ray ordered. Patient had history of surgery on t
[2020-12-15 16:10] VITALS: BP 156/94; PULSE 80; RESP 20; O2SAT 97
== END 2020-12-15 16:20 | disposition home or self-care (01) ==
PROVIDERS: Emergency Provider Emergency Medicine
DX: S96.911A Strain of unspecified muscle and tendon at ankle and foot level, right foot, initial encounter (principal); S93.401A Sprain of unspecified ligament of right ankle, initial encounter; J45.909 Unspecified asthma, uncomplicated; E66.9 Obesity, unspecified; Z68.33 Body mass index [BMI] 33.0-33.9, adult; Z87.440 Personal history of urinary (tract) infections; Z87.891 Personal history of nicotine dependence; M19.071 Primary osteoarthritis, right ankle and foot; X50.9XXA Other and unspecified overexertion or strenuous movements or postures, initial encounter
CPT/HCPCS: 73610; 99283

== ENCOUNTER 2021-05-09 08:40 | Emergency (ER) | payer BC, SELFPAY ==
[2021-05-09 08:46] VITALS: BP 135/76; PULSE 88; RESP 16; TEMP 36.2; O2SAT 99
--- NOTE | 2021-05-09 08:47 | ED.SKABFB ---
HPI - Skin/Abscess/Foreign Bdy General Chief complaint: Skin/Abscess/Foreign Body Stated complaint: rash Time Seen by Provider: 05/09/21 08:54 Source: patient Mode of arrival: ambulatory History of Present Illness HPI narrative: patient presents with dry flaky rash to both feet . patient reports if has been present for the past 2 weeks. patient is using gold culver with minimal improvement in rash. no drainge from area. MD complaint: rash Onset (ago): week(s) (2) Location: L foot and R foot (both feet ) Related Data Allergies Allergy/AdvReac Type Severity Reaction Status Date / Time cephalexin Allergy Mild MOUTH Verified 05/09/21 08:52 BLISTERS Penicillins Allergy Mild Unknown Verified 05/09/21 08:52 Review of Systems Review of Systems: CONSTITUTIONAL: Denies fever, chills, or sweats. EYES: Denies visual changes, redness, or discharge. ENT: Denies rhinorrhea, congestion, sore throat, or otalgia. CARDIOVASCULAR: Denies chest pain, palpitations, or edema. RESPIRATORY: Denies cough or dyspnea. GASTROINTESTINAL: Denies abdominal pain, nausea, vomiting, or diarrhea. GENITOURINARY: Denies dysuria or hematuria. SKIN: Denies rash or itching. MUSCULOSKELETAL: Denies back pain, joint pain, or myalgia. NEUROLOGIC: Denies headache, numbness, or weakness. PSYCHIATRIC: Denies anxiety or depression. [facility] Past Medical History Medical History Asthma No acute medical problems Obesity (BMI 30-39.9) Smoking history UTI (urinary tract infection) Surgical History Surgical History History of hysterectomy History of partial hysterectomy Open partial hysterectomy in 2006 Hx laparoscopic cholecystectomy 06/06/20 Family History Family History Mother Gallbladder disease Other No acute medical problems Social History Social History Smoking status: Former smoker Alcohol intake: never Substance use: never Additional living arrangements comments: Patient lives at home with her boyfriend. She is not and has no children. Additional occupation/education comments: Works for [employer] in the [place]. Gender identity (if verbalized by the patient): Female Sexual Orientation (if Verbalized by the Patient): Straight or Heterosexual Spiritual care concerns: No Comments At time of signature, agree with nursing past medical, surgical, social and family history. There is no relevant family history pertinent to the presenting complaint Exam Narrative: GENERAL: Well-appearing, well-nourished, and in no acute distress. HEAD: Normocephalic, atraumatic. EYES: PERRLA and EOMI. ENT: Nares clear, no rhinorrhea or epistaxis. Mucous membranes moist. NECK: Supple. CHEST: Clear to auscultation. No respiratory distress. HEART: Regular rate and rhythm. No murmur heard. Normal peripheral pulses. ABDOMEN: Soft, nontender, nondistended, normal active bowel sounds. EXTREMITIES: Normal range of motion. No edema. SKIN: Warm, dry, dry flaky rash concsintent with athletes feet to tops and sides of both feet no drainage no concern for cellullitis NEURO: No focal deficits. Alert and oriented x3. Bia Coma Scale Eye Opening: Spontaneous 4 Bia Coma Scale Motor: Obeys Commands 6 [place] Coma Scale Verbal: Oriented 5 Bia Coma Scale Total 15 Course Course Level of Care: Express Care Visit MDM - Skin/Abscess/Foreign Bdy Differential Diagnosis Differential diagnosis: Likely abscess of skin or subcutaneous tissue, viral exanthem, dermatophytosis, urticaria, herpes zoster, allergic reaction to drug, cellulitis, eczema, insect bites, impetigo and contact dermatitis Critical Care Time Critical Care Time Critical Care Time: No Discharge Plan Discharge Clinical Impression: Athlete's foot on left, Athlete's foot
== END 2021-05-09 09:05 | disposition home or self-care (01) ==
PROVIDERS: Emergency Provider Nurse Practitioner Family
DX: B35.3 Tinea pedis (principal); Z87.891 Personal history of nicotine dependence; J45.909 Unspecified asthma, uncomplicated; E66.9 Obesity, unspecified; Z68.33 Body mass index [BMI] 33.0-33.9, adult; Z90.711 Acquired absence of uterus with remaining cervical stump
CPT/HCPCS: 99213; G0463

== ENCOUNTER 2022-05-16 12:45 | Emergency (ER) | payer BC, SELFPAY ==
[2022-05-16 12:55] VITALS: BP 128/71; PULSE 88; RESP 16; TEMP 37.2; O2SAT 97
--- NOTE | 2022-05-16 13:57 | ED.ABDPAIN ---
HPI - Abdominal Pain General Chief Complaint: Abdominal Pain Stated Complaint: right side lower abdo pain Time Seen by Provider: 05/16/22 13:57 Source: patient, RN notes reviewed and old records reviewed Mode of arrival: ambulatory Limitations: no limitations History of Present Illness HPI narrative: A 1-year-old female presents to Express Care complaints of 2 day history of right lower quadrant pain, patient reports as long as she does not move pain is tolerable, she does have palpable pain with tenderness to right lower abdomen. Patient reports history of partial hysterectomy, , cholecystectomy. Patient denies any burning or pain with urination no fevers, chills or sweats, denies any diarrhea or any nausea or vomiting. MD elicited complaint: abdominal pain Onset (ago): day(s) (2) Pain Consistency: constant Related Data Allergies Allergy/AdvReac Type Severity Reaction Status Date / Time cephalexin Allergy Mild MOUTH Verified 05/09/21 08:52 BLISTERS Penicillins Allergy Mild Unknown Verified 05/09/21 08:52 Review of Systems Review of Systems: CONSTITUTIONAL: Denies fever, chills, or sweats. ENT: Denies rhinorrhea, congestion, sore throat, or otalgia. CARDIOVASCULAR: Denies chest pain, palpitations, or edema. RESPIRATORY: Denies cough or dyspnea. GASTROINTESTINAL: reports right lower abdominal pain,no nausea, vomiting, diarrhea. GENITOURINARY: Denies dysuria or hematuria. SKIN: Denies rash or itching. MUSCULOSKELETAL: Denies back pain, joint pain, or myalgia. NEUROLOGIC: Denies headache, numbness, or weakness. All systems reviewed & are unremarkable except as noted in HPI and below PMFSH Past Medical History Medical History Asthma No acute medical problems Obesity (BMI 30-39.9) Smoking history UTI (urinary tract infection) Surgical History Surgical History History of hysterectomy History of partial hysterectomy Open partial hysterectomy in 2006 Hx laparoscopic cholecystectomy 06/06/20 Family History Family History Mother Gallbladder disease Other No acute medical problems Social History Social History Smoking status: Former smoker Alcohol intake: never Substance use: never Additional living arrangements comments: Patient lives at home with her boyfriend. She is not and has no children. Additional occupation/education comments: Works for [employer] in the [employer]. Gender identity (if verbalized by the patient): Female Sexual Orientation (if Verbalized by the Patient): Straight or Heterosexual Spiritual care concerns: No Comments At time of signature, agree with nursing past medical, surgical, social and family history. There is no relevant family history pertinent to the presenting complaint Exam Narrative: GENERAL: Well-appearing, well-nourished, and in no acute distress. HEAD: Normocephalic, atraumatic. EYES: PERRLA, conjunctivae clear, and EOMI. ENT: Nares clear. Mucous membranes moist. Oropharynx without edema, erythema, or lesions. Tonsils not enlarged and without exudate. NECK: Supple. No lymphadenopathy CHEST: Speaks in full sentences. No respiratory distress. HEART: Regular rate and rhythm. ABDOMEN: Soft, flat, nondistended.RLQ guarding,no rebound tenderness, no rigidity. No pulsatilla masses. Bowel sounds present in all four quadrants. No organomegaly. Negative Ruth?s sign. No periumbilical tenderness. No Supra public tenderness or distension.positive for McBurney point tenderness right lower abdominal quadrant. Good femoral pulses bilaterally. No hernia noted. No scars or surface trauma. SKIN: Warm, dry, no rash. NEURO:? Alert and oriented x3. PSYCH: Normal mood and affect Course Course Emergency Course: Patient is aware o
--- NOTE | 2022-05-16 14:08 | PC.NURSE ---
NO URINE CULTURE PER PROVIDER. SENT TO ER.
== END 2022-05-16 14:16 | disposition short-term general hospital (02) ==
LOC: EXPBETH 12:48
PROVIDERS: Emergency Provider Registered Nurse; PCP Emergency Medicine
DX: R10.31 Right lower quadrant pain (principal); Z87.891 Personal history of nicotine dependence; J45.909 Unspecified asthma, uncomplicated; Z90.711 Acquired absence of uterus with remaining cervical stump
CPT/HCPCS: 81003; 99212; G0463

== ENCOUNTER 2022-05-16 14:50 | Emergency (ER) | payer BC, SELFPAY ==
--- NOTE | ~2022-05-16 | CT_ITS ---
EXAMINATION: CT abdomen pelvis w con DATE: 05/16/2022 17:39 INDICATION: Right lower abdominal pain. TECHNIQUE: Computed tomography (CT) of the abdomen and pelvis was performed with 100 mL Omnipaque-350 intravenous contrast. Automated exposure control and iterative reconstruction technique were employe d. The dose-length product was 844.16 mGy-cm. COMPARISON: 06/05/20 FINDINGS: No change in a cluster of small nodules in the left lower lobe, the largest with calcification consis tent with old granulomatous disease. Mild discoid atelectasis in the bilateral lower lobes. Heart siz e is normal. No pericardial or pleural effusion. Calcified paraesophageal lymph node consistent with old granulomatous disease along side a small sliding-type hiatal hernia. Cholecystectomy clips the ga llbladder fossa. Liver, pancreas, bilateral adrenal glands and kidneys are normal. 1 cm low-attenuati on splenic cyst. Mild diverticulosis predominantly along the descending and sigmoid colon. There is w all thickening at the central sigmoid colon with surrounding inflammatory stranding consistent with d iverticulitis. Small bowel and appendix are normal. Bladder is normal. The uterus is not identified a nd has likely been surgically resected. . Bilateral adnexa are unremarkable. No abscess or free intr aperitoneal gas or fluid. No pathologically enlarged abdominal or pelvic lymphadenopathy. Mild lumbar levoscoliosis with mild to moderate spondylosis. Internal fixation of an old healed fracture of the anteromedial right femoral head with 3 fixation screws versus pins relation. IMPRESSION: 1. Radiographically uncomplicated sigmoid diverticulitis. 2. Small sliding-type hiatal hernia. Reviewed, dictated and finalized at location A. ET LAYER HELPER
--- NOTE | 2022-05-16 15:02 | ED.ABDPAIN ---
HPI - Abdominal Pain General Chief Complaint: Abdominal Pain Stated Complaint: rlq abd pain Time Seen by Provider: 05/16/22 14:53 Source: patient and RN notes reviewed Mode of arrival: ambulatory Limitations: no limitations History of Present Illness HPI narrative: This is a 51 year old female who presents for evaluation of right lower abdominal pain. She states yesterday her pain started as mild ache that has been constant. Today she is having sharp pain that is worse with walking or movement. She took tylenol last night to help her sleep but she has not taken any medication today. She denies associated nausea, vomiting, dysuria, hematuria or fever. She was evaluated at [facility] today and she was referred to ER for further testing. They performed a urine dipstick analysis and it was nitrate Positive. She rates her pain has 7/10 currently. Related Data Allergies Allergy/AdvReac Type Severity Reaction Status Date / Time cephalexin Allergy Mild MOUTH Verified 05/09/21 08:52 BLISTERS Penicillins Allergy Mild Unknown Verified 05/09/21 08:52 Review of Systems Constitutional: Constitutional: Denies weakness Cardiovascular: Cardiovascular: Denies syncope, Denies rapid heart rate, Denies irregular heart rhythm, Denies leg edema and Denies dyspnea Respiratory: Respiratory: Denies chest congestion, Denies hemoptysis, Denies excessive phlegm production and Denies dyspnea Gastrointestinal: Gastrointestinal: Reports abdominal pain, Denies hematochezia, Denies diarrhea and Denies vomiting Genitourinary: Genitourinary: Denies hematuria and Denies dysuria Musculoskeletal: Musculoskeletal: Denies joint swelling, Denies loss of height and Denies muscle weakness Neurologic: Denies syncope, Denies focal weakness and Denies weakness PMFSH Past Medical History Medical History Asthma No acute medical problems Obesity (BMI 30-39.9) Smoking history UTI (urinary tract infection) Surgical History Surgical History History of hysterectomy History of partial hysterectomy Open partial hysterectomy in 2006 Hx laparoscopic cholecystectomy 06/06/20 Family History Family History Mother Gallbladder disease Other No acute medical problems Social History Social History Smoking status: Former smoker Alcohol intake: never Substance use: never Additional living arrangements comments: Patient lives at home with her boyfriend. She is not and has no children. Additional occupation/education comments: Works for [employer] in the [employer]. Gender identity (if verbalized by the patient): Female Sexual Orientation (if Verbalized by the Patient): Straight or Heterosexual Spiritual care concerns: No Exam Narrative: GENERAL: Well-appearing, well-nourished, and in no acute distress. HEAD: Normocephalic, atraumatic EYES: PERRLA and EOMI, conjunctiva clear without discharge E THROAT:Mucous membranes moist, Oropharynx normal without erythema, exudate, peritonsillar swelling or fluctuance NECK: Supple, without lymphadenopathy or mass RESPIRATORY: No respiratory distress, Airway patent, Respirations non-labored, Clear to auscultation without rales, rhonchi or wheeze HEART: Regular rate and rhythm. No murmur heard. Normal peripheral pulses. ABDOMEN: Soft, TTP RLQ nondistended, normal active bowel sounds. No masses. No rebound or guarding, No organomegaly. EXTREMITIES: No edema, normal strength with full range of motion. SKIN: Warm, dry, normal color without rash NEURO: Alert and oriented x3. CN 2-12 grossly intact. No focal deficits. PSYCH: Normal mood and affect. Neuro: Speech: No Abnormal speech present MDM - Abdominal Pain MDM Narrative Medical decision making narrative: Co-morbiditie
[2022-05-16] MEDS: KETOROLAC 15 MG/ML VIAL (*BKC) IV PUSH (15:23)
[2022-05-16 15:51] LABS: Appearance Urine Cloudy (Clear); Bilirubin Urine Negative (Negative); Blood Urine Negative (Negative); Color Urine Yellow (Yellow); Glucose Urine UA Negative (Negative); Ketones Urine Negative (Negative); Leukocyte Esterase Ur Negative LEU/UL (Negative); Nitrate Urine Positive (Negative); Protein Urine Negative (Negative); Specific Grav Ur >= 1.030 (1.001-1.035); Urobilinogen Urine 0.2 mg/dL (<2.0); pH Urine 5.5 (5.0-9.0)
[2022-05-16 15:54] LABS: Basophils Absolute Auto 0.1 K/mm3 (0.0-0.1); Basophils Percent Auto 0.6 % (0.2-1.2); Eosinophils Absolute Auto 0.2 K/mm3 (0-0.3); Eosinophils Percent Auto 2.9 % (0-4.4); Hemoglobin 10.9 g/dL (12.0-15.0); Immature Granulocyte Absolute 0.03 K/mm3 (0.00-0.031); Immature Granulocyte Percent A 0.4 % (0-0.5); Immature Platelet Fraction Pct 5.4 % (0.9-11.2); Lymphocytes Absolute Auto 1.32 K/mm3 (0.9-3.2); Lymphocytes Percent Auto 16.2 % (18.3-44.2); Mean Corpuscular HGB Conc 30.3 g/dl (32-36); Mean Corpuscular Hemoglobin 25.6 pg (26-34); Mean Corpuscular Volume 84.5 fl (80-100); Mean Platelet Volume 10.7 fl (7.4-10.4); Monocytes Absolute Auto 0.8 K/mm3 (0.1-0.6); Monocytes Percent Auto 9.7 % (2.6-8.5); Neutrophils Absolute Auto 5.7 K/mm3 (1.3-6.7); Neutrophils Percent Auto 70.2 % (45.5-73.1); Platelet Count Result 325 k/mm3 (150-375); Red Blood Count 4.26 M/mm3 (4.2-5.4); Red Cell Distribution Width 15.7 % (11.5-14.5); White Blood Count 8.2 K/mm3 (4.5-10.0)
[2022-05-16 16:04] LABS: Bacteria Urine Trace /hpf; Mucus Urine Rare /lpf; RBC Urine 0-2 /hpf (0-2); Squamous Epithelial Cell Urine Rare /hpf (Few); WBC Urine 0-3 /hpf
[2022-05-16 16:05] LABS: Add Urine Microscopic? YES
[2022-05-16 16:07] LABS: Platelet Estimate Adequate (Adequate); Schistocytes None Seen (NORMAL)
[2022-05-16 16:34] LABS: Alanine Aminotransferase 47 U/L (6-35); Albumin Level 4.2 g/dL (3.5-5.1); Alkaline Phosphatase 79 U/L (38-126); Anion Gap 6 mmol/L (8-16); Aspartate Amino Transferase 50 U/L (14-36); Bilirubin,Total 0.4 mg/dL (0.2-1.3); Blood Urea Nitrogen 11 mg/dL (7-17); Calcium 8.9 mg/dL (8.4-10.2); Carbon Dioxide 28 mmol/L (22-30); Chloride 107 mmol/L (98-107); Estimated CRCL calculation 87 ml/min; Estimated Glomerular Filt Rate > 60; Glucose 100 mg/dL (65-110); Lipase 81 U/L (23-300); Potassium 4.1 mmol/L (3.4-5.0); Sodium 141 mmol/L (137-145)
[2022-05-16] MEDS: SODIUM CHLORIDE 0.9% IV 1,000 ML 999 ML IV CONT (17:16)
[2022-05-16] MEDS: CIPROFLOXACIN 500 MG TAB PO (18:50)
[2022-05-16] MEDS: metroNIDAZOLE 250 MG TABLET 500 MG PO (18:51)
== END 2022-05-16 19:03 | disposition home or self-care (01) ==
PROVIDERS: Emergency Provider General Practice
DX: K57.32 Diverticulitis of large intestine without perforation or abscess without bleeding (principal); J45.909 Unspecified asthma, uncomplicated; E66.9 Obesity, unspecified; Z68.36 Body mass index [BMI] 36.0-36.9, adult; Z87.440 Personal history of urinary (tract) infections; Z90.711 Acquired absence of uterus with remaining cervical stump; Z87.891 Personal history of nicotine dependence; K44.9 Diaphragmatic hernia without obstruction or gangrene
CPT/HCPCS: 36415; 74177; 80053; 81001; 83690; 85025; 85055; 96361; 96374; 99284; A9270; J1885; J7030; Q9967

== ENCOUNTER 2022-05-20 13:29 | Day surgery (SDC) | payer BC, SELFPAY ==
--- NOTE | ~2022-05-20 | XR_ITS ---
XR chest 2V DATE: 05/20/2022 14:53 INDICATION: Aspiration. Coughing up food particles TECHNIQUE: PA and lateral views COMPARISON: None FINDINGS: Normal heart size. No hilar or mediastinal enlargement. No pulmonary infiltrate or consol idation, pulmonary vascular congestion or pleural effusion or pneumothorax. Mild thoracolumbar scoliosis. Status post cholecystectomy. IMPRESSION: No active cardiopulmonary disease Status post cholecystectomy Reviewed, dictated and finalized at location L. NILE DETENTION OFFICER
--- NOTE | ~2022-05-20 | XR_ITS ---
EXAMINATION: XR soft tissue neck DATE: 05/20/2022 14:53 INDICATION: Aspiration. Choking . Food bolus impaction. TECHNIQUE: 2 views of the neck soft tissues were obtained. COMPARISON: None. FINDINGS: The adenoids, palatine tonsils, prevertebral soft tissues, epiglottis, and glottis are norm al. The patient is edentulous. IMPRESSION: 1. Normal neck soft tissues. No radiopaque foreign body. Reviewed, dictated and finalized at location A. ANDROID DEVELOPER
[2022-05-20 13:32] VITALS: BP 148/96; PULSE 88; RESP 18; TEMP 36.4; O2SAT 97
--- NOTE | 2022-05-20 14:28 | ED.GENADULT ---
HPI - General Adult General Chief complaint: Unspecified Stated complaint: coughing up blood Time Seen by Provider: 05/20/22 14:16 History of Present Illness HPI narrative: 51-year-old female who has had a history of frequent choking on food presents after she ate some chicken today and felt like it was getting caught in her throat, she tried drinking water afterwards but came right back up. No issues with speaking or breathing. Related Data Allergies Allergy/AdvReac Type Severity Reaction Status Date / Time cephalexin Allergy Mild MOUTH Verified 05/09/21 08:52 BLISTERS Penicillins Allergy Mild Unknown Verified 05/09/21 08:52 Review of Systems Review of Systems: CONST: No fever. HEENT: Nosebleed C/V: Sensation of something caught in her upper chest RESP: No difficulty breathing GI: Throwing up when she tries to drink : No dysuria. M/S: No joint pain. SKIN: No rash. NEURO: [No headache or focal numbness or weakness] PSYCH: [No depression] [facility] Past Medical History Medical History Asthma Dysphagia No acute medical problems Obesity (BMI 30-39.9) Smoking history UTI (urinary tract infection) Surgical History Surgical History History of hysterectomy History of partial hysterectomy Open partial hysterectomy in 2006 Hx laparoscopic cholecystectomy 06/06/20 Family History Family History Mother Gallbladder disease Other No acute medical problems Social History Social History Smoking status: Former smoker Alcohol intake: never Substance use: never Additional living arrangements comments: Patient lives at home with her boyfriend. She is not and has no children. Additional occupation/education comments: Works for [employer] in the [employer]. Gender identity (if verbalized by the patient): Female Sexual Orientation (if Verbalized by the Patient): Straight or Heterosexual Spiritual care concerns: No Exam Narrative: EXAMINATION OF ORGAN SYSTEMS/BODY AREAS: Constitutional: Vital signs per nursing GENERAL:[No acute distress, non-toxic appearing.] HEAD: Normal with no signs of head trauma. EYES: EOMI, conjunctiva normal ENT: Dried blood in nares, speaking with normal voice LUNGS: Nonlabored breathing, lungs CTAB. HEART: [Regular rate and rhythm], no crepitus or chest tenderness ABD: [Soft], [nontender to palpation] EXT: Normal range of motion SKIN: [No rashes or lesions.] NEURO: [Alert and oriented x 3. No gross focal sensory or strength deficits.] PSYCH: Normal affect Course Vital Signs Vital signs: Vital Signs Temperature 97.6 F 05/20/22 13:32 Pulse Rate 88 05/20/22 13:32 Respiratory Rate 18 05/20/22 13:32 Blood Pressure 148/96 H 05/20/22 13:32 Pulse Oximetry 97 05/20/22 13:32 Oxygen Delivery Room Air 05/20/22 13:32 Temperature 97.6 F 05/20/22 13:32 Pulse Rate 90 05/20/22 15:39 Respiratory Rate 12 05/20/22 15:39 Blood Pressure 150/77 H 05/20/22 15:39 Pulse Oximetry 99 05/20/22 15:39 Oxygen Delivery Room Air 05/20/22 15:39 Medical Decision Making MDM Narrative Medical decision making narrative: 51yoF p/w food bolus impaction (chicken stuck), can't even keep water down. VSS and no airway compromise or respiratory distress here. I did attempt a carbonated beverage however patient also just spit this up. X-rays obtained here do not show any obvious abnormality, case discussed with GI on-call Dr. Mcgraw who will take patient to OR for endoscopy. Patient agreeable with this plan. Vital Signs Vital Signs: Vital Signs Temperature 97.6 F 05/20/22 13:32 Pulse Rate 88 05/20/22 13:32 Respiratory Rate 18 05/20/22 13:32 Blood Pressure 148/96 H 05/20/22 13:32 Pulse Oximetry 97 05/20/22 13:
[2022-05-20 15:39] VITALS: BP 150/77; PULSE 90; RESP 12; O2SAT 98; O2SAT 99
--- NOTE | 2022-05-20 15:50 | P.PNAN_ITS ---
Anes - Eval Pre Procedure Procedure: Operation Date: 05/20/22 15:45 Proposed Procedures p Esophagogastroduodenoscopy - Mahamed Mcgraw MD Date/Time: 05/20/22 15:50 Pre Op Diagnosis: coughing up blood Patient Data Age: 51 Gender: F Height: 1.57 m Weight: 93 kg Last Vital Signs Temp 36.4 C 05/20/22 13:32 Pulse 90 05/20/22 15:39 Resp 12 05/20/22 15:39 BP 150/77 H 05/20/22 15:39 Pulse Ox 99 05/20/22 15:39 O2 Del Method Room Air 05/20/22 15:39 Allergies Allergy/AdvReac Type Severity Reaction Status Date / Time cephalexin Allergy Mild MOUTH Verified 05/09/21 08:52 BLISTERS Penicillins Allergy Mild Unknown Verified 05/09/21 08:52 Home Medications Medication Instructions Recorded Confirmed Type ciprofloxacin HCl 500 mg tablet 500 mg PO Q12H #20 tabs 05/16/22 Rx (Cipro) hydrocodone 5 mg-acetaminophen 325 1 tablet PO Q6H PRN pain #7 tabs 05/16/22 Rx mg tablet metronidazole 500 mg tablet 500 mg PO Q8H 10 days #30 tabs 05/16/22 Rx Patient hx anesthesia problems: none Family hx anesthesia problems: none Results Review: All pre-operative results and documents have been reviewed as part of the pre- operative evaluation. [facility] Past Medical History Medical History Asthma Dysphagia No acute medical problems Obesity (BMI 30-39.9) Smoking history UTI (urinary tract infection) Surgical History Surgical History History of hysterectomy History of partial hysterectomy Open partial hysterectomy in 2006 Hx laparoscopic cholecystectomy 06/06/20 Family History Family History Mother Gallbladder disease Other No acute medical problems Social History Social History Smoking status: Former smoker Alcohol intake: never Substance use: never Additional living arrangements comments: Patient lives at home with her boyfriend. She is not and has no children. Additional occupation/education comments: Works for [employer] in the [employer]. Gender identity (if verbalized by the patient): Female Sexual Orientation (if Verbalized by the Patient): Straight or Heterosexual Spiritual care concerns: No Exam Day of Procedure 05/20/22 15:50 Patient weight: obese Lungs: clear to auscultation Neurological: alert and oriented
--- NOTE | 2022-05-20 16:01 | WPDGICN ---
Assessment and Plan Assessment and plan (1) Food impaction of esophagus: Code(s): T18.128A - Food in esophagus causing other injury, initial encounter Status: Acute Assessment and Plan: Patient with apparent food with impaction in the esophagus. She has had intermittent difficulty swallowing over the last 10 years. She denies any overt heartburn. She has had no weight loss or bleeding. Because she is unable to eat or swallow plan is for EGD to evaluate swallowing more thoroughly also to remove possible food impaction. If there is a stricture this may require dilatation. Depending on the level of inflammation this present time endoscopy. Further recommendations may be given after endoscopy. GI Consult Note Consult date/time: 05/20/22 16:01 Reason for consult: Food impaction HPI: Joyce Lo is a 51 year old female I am asked to see at the request of the emergency room because of food impaction and difficulty swallowing. Patient has a history of cholecystectomy in her early in 2020. She was seen in the ER for diverticulitis 2 weeks ago. She apparently was doing well until today at work she was eating check in and this became lodged in her mid chest. She subsequently was unable to eat food or water. She presented the ER and I have been consulted. Patient states she has intermittently had difficulty prior to this. This is lasted longer and been more difficult to swallow then any previous episode. She has had intermittent difficulties over the last 10 years. She has had no weight loss or bleeding. Family history noncontributory. Review of Systems Review of Systems: Review of systems noncontributory. [facility] Past Medical History Medical History Asthma Dysphagia No acute medical problems Obesity (BMI 30-39.9) Smoking history UTI (urinary tract infection) Surgical History Surgical History History of hysterectomy History of partial hysterectomy Open partial hysterectomy in 2006 Hx laparoscopic cholecystectomy 06/06/20 Family History Family History Mother Gallbladder disease Other No acute medical problems Social History Social History Smoking status: Former smoker Alcohol intake: never Substance use: never Additional living arrangements comments: Patient lives at home with her boyfriend. She is not and has no children. Additional occupation/education comments: Works for [employer] in the [employer]. Gender identity (if verbalized by the patient): Female Sexual Orientation (if Verbalized by the Patient): Straight or Heterosexual Spiritual care concerns: No Meds Home Medications and Allergies Home Medications Medication Instructions Recorded Confirmed Type ciprofloxacin HCl 500 mg tablet 500 mg PO Q12H #20 tabs 05/16/22 Rx (Cipro) hydrocodone 5 mg-acetaminophen 325 1 tablet PO Q6H PRN pain #7 tabs 05/16/22 Rx mg tablet metronidazole 500 mg tablet 500 mg PO Q8H 10 days #30 tabs 05/16/22 Rx Allergies Allergy/AdvReac Type Severity Reaction Status Date / Time cephalexin Allergy Mild MOUTH Verified 05/09/21 08:52 BLISTERS Penicillins Allergy Mild Unknown Verified 05/09/21 08:52 Vital Signs Vital Signs - 24 hr 05/20/22 13:32 05/20/22 15:39 05/20/22 15:39 Temperature 97.6 F Pulse Rate 88 90 Respiratory Rate 18 12 Blood Pressure 148/96 H 150/77 H Pulse Oximetry 97 98 99 Oxygen Delivery Room Air Room Air Exam Narrative: Physical exam reveals patient to be alert. Vital signs stable. HEENT exam reveals no icterus. Lungs are clear to auscultation and percussion. Heart is without murmur or extra sounds. Abdomen bowel sounds present soft nontender with no organomegaly. [facility] Consult Bi
--- NOTE | 2022-05-20 16:24 | SUR.PREOP ---
Patient being pre oped and recovered in Endo room 3.
[2022-05-20 16:28] VITALS: BP 138/83; PULSE 94; RESP 18; TEMP 36.8; O2SAT 99
[2022-05-20] MEDS: LACTATED RINGERS 1,000 ML 150 ML IV CONT (16:31)
[2022-05-20 16:55] VITALS: BP 118/54; PULSE 80; RESP 27; O2SAT 99
[2022-05-20 17:05] VITALS: BP 129/68; PULSE 83; RESP 20; O2SAT 99
[2022-05-20 17:15] VITALS: BP 146/84; PULSE 86; RESP 20; O2SAT 99
== END 2022-05-20 17:44 | disposition home or self-care (01) ==
LOC: ANHED 15:56 → ANHENDO 16:14
PROVIDERS: Emergency Provider Emergency Medicine; PCP Emergency Medicine; Visit Provider Internal Medicine Gastroenterology
PROC: 0DJ08ZZ Inspection of Upper Intestinal Tract, Via Natural or Artificial Opening Endoscopic (ICD-10-PCS; CPT 43235; principal; 2022-05-20 15:45)
DX: T18.128A Food in esophagus causing other injury, initial encounter (principal); K22.2 Esophageal obstruction; K20.90 Esophagitis, unspecified without bleeding; Z87.891 Personal history of nicotine dependence; E66.9 Obesity, unspecified; Z68.37 Body mass index [BMI] 37.0-37.9, adult
CPT/HCPCS: 43247; 70360; 71046; J2704; J7120

== ENCOUNTER 2022-06-11 01:38 | Day surgery (SDC) | payer BC, SELFPAY ==
[2022-05-28 13:13] VITALS: BMI 36.3
--- NOTE | 2022-06-07 08:54 | SUR.PREOP ---
06/07/22 Patient called this morning informing me that she had been prescribed and antibiotic for a UTI from her primary doctor last week. She said she has not started taking it yet. Her primary told that it would not effect her procedure and that she could stop taking it before her procedure. I provided education about the importance of starting and antibiotic when it is prescribed and not to stop it. I instructed her to begin taking the antibiotic and continue until the entire bottle is finished.
[2022-06-11 10:16] VITALS: BP 157/80; PULSE 90; RESP 18; TEMP 36; O2SAT 100
[2022-06-11] MEDS: LACTATED RINGERS 1,000 ML 150 ML IV CONT (10:19)
--- NOTE | 2022-06-11 10:52 | WPDANESEPPF ---
Anes - Initial Pre Proc Eval Procedure: Operation Date: 06/11/22 11:00 Proposed Procedures p Esophagogastroduodenoscopy & Colonoscopy - Mahamed Mcgraw MD Date/Time: 06/11/22 10:52 Surgeon: Mahamed Mcgraw MD Pre Op Diagnosis: diverticulitis, esophageal stricture Patient Data Age: 52 Gender: F Height: 1.6 m Weight: 87.3 kg Last Vital Signs Temp 96.8 F L 06/11/22 10:16 Pulse 90 06/11/22 10:16 Resp 18 06/11/22 10:16 BP 157/80 H 06/11/22 10:16 Pulse Ox 100 06/11/22 10:16 O2 Del Method Room Air 06/11/22 10:16 Allergies Allergy/AdvReac Type Severity Reaction Status Date / Time cephalexin Allergy Mild MOUTH Verified 06/11/22 10:14 BLISTERS Penicillins Allergy Mild Unknown Verified 06/11/22 10:14 Home Medications Medication Instructions Recorded Confirmed Type pantoprazole 40 mg tablet,delayed 40 mg PO QAM #30 tabs 05/20/22 06/11/22 Rx release Women's Multivitamin 1 tab-cap PO DAILY 05/28/22 06/11/22 History nitrofurantoin 100 mg PO BID 06/11/22 06/11/22 History monohydrate/macrocrystals 100 mg capsule Patient hx anesthesia problems: none Family hx anesthesia problems: none Results Review: All pre-operative results and documents have been reviewed as part of the pre-operative evaluation. [facility] Past Medical History Medical History Asthma Dysphagia No acute medical problems Obesity (BMI 30-39.9) Smoking history UTI (urinary tract infection) Surgical History Surgical History History of hysterectomy History of partial hysterectomy Open partial hysterectomy in 2006 Hx laparoscopic cholecystectomy 06/06/20 Family History Family History Mother Gallbladder disease Other No acute medical problems Social History Social History Smoking packs per day: 0.5 Smoking cigarettes per day: 10.0 Years smoked: 7 Smoking pack-years: 3.50 Smoking status: Former smoker Alcohol intake: current Alcohol use details: rarely Substance use: never Substance use type: does not use Living arrangements: with family Additional living arrangements comments: Patient lives at home with her boyfriend. She is not and has no children. Occupation/Education: occupation Additional occupation/education comments: Works for [employer] in the [employer]. Gender identity (if verbalized by the patient): Female Sexual Orientation (if Verbalized by the Patient): Straight or Heterosexual Spiritual care concerns: No Anes - Eval Final PreProcedure Day of Procedure 06/11/22 10:52 Patient weight: normal Heart: regular rate and rhythm Lungs: clear to auscultation Airway: Mallampati scale class II Neurological: alert and oriented Last oral intake: >/= 8 hours ASA classification: II Emergent: no Anesthetic plan: proceed Results Review: All pre-operative results and documents have been reviewed as part of the pre-operative evaluation. Informed Consent: The patient's anesthetic plan and its attendant risks and benefits were discussed with the patient/family/POA. Questions were solicited and answers provided to the satisfaction of the patient/family/POA.
--- NOTE | 2022-06-11 11:10 | PM.HPGS ---
History of Present Illness History of Present Illness Consent: Risks, benefits, and alternatives have been discussed and questions answered. Patient agrees to proceed with procedure. Chief complaint: diverticulitis, esophageal stricture Narrative: Joyce Lo is a 52 year old female Presents for both colonoscopy and EGD. Patient had recent food impaction. She subsequently was placed on Protonix. Currently has no heartburn. She is only eating soft foods. She returns today for esophageal the taken of stricture identified at time of EGD. Additionally patient is recovering after a bout of diverticulitis. She has completed course of antibiotics no longer has abdominal pain. Her bowel habits have normalized. A colonoscopy is recommended for screening purposes. Review of Systems Review of Systems: Review of systems noncontributory. [facility] Past Medical History Medical History Asthma Dysphagia No acute medical problems Obesity (BMI 30-39.9) Smoking history UTI (urinary tract infection) Surgical History Surgical History History of hysterectomy History of partial hysterectomy Open partial hysterectomy in 2006 Hx laparoscopic cholecystectomy 06/06/20 Family History Family History Mother Gallbladder disease Other No acute medical problems Social History Social History Smoking packs per day: 0.5 Smoking cigarettes per day: 10.0 Years smoked: 7 Smoking pack-years: 3.50 Smoking status: Former smoker Alcohol intake: current Alcohol use details: rarely Substance use: never Substance use type: does not use Living arrangements: with family Additional living arrangements comments: Patient lives at home with her boyfriend. She is not and has no children. Occupation/Education: occupation Additional occupation/education comments: Works for [employer] in the [employer]. Gender identity (if verbalized by the patient): Female Sexual Orientation (if Verbalized by the Patient): Straight or Heterosexual Spiritual care concerns: No Meds Home Medications and Allergies Home Medications Medication Instructions Recorded Confirmed Type pantoprazole 40 mg tablet,delayed 40 mg PO QAM #30 tabs 05/20/22 06/11/22 Rx release Women's Multivitamin 1 tab-cap PO DAILY 05/28/22 06/11/22 History nitrofurantoin 100 mg PO BID 06/11/22 06/11/22 History monohydrate/macrocrystals 100 mg capsule Allergies Allergy/AdvReac Type Severity Reaction Status Date / Time cephalexin Allergy Mild MOUTH Verified 06/11/22 10:14 BLISTERS Penicillins Allergy Mild Unknown Verified 06/11/22 10:14 Vital Signs Vital Signs - 24 hr 06/11/22 10:16 Temperature 96.8 F L Pulse Rate 90 Respiratory Rate 18 Blood Pressure 157/80 H Pulse Oximetry 100 Oxygen Delivery Room Air Exam Narrative: Physical exam reveals patient to be alert. Vital signs stable. HEENT exam is unremarkable. Patient is anicteric. Lungs are clear to auscultation and percussion. Heart is without murmur or extra sounds. Abdomen bowel sounds are present soft nontender with no organomegaly. Digital external rectal exam is normal. Assessment and Plan Assessment and plan (1) Erosive esophagitis: Code(s): K22.10 - Ulcer of esophagus without bleeding Status: Acute Assessment and Plan: Patient with a history of erosive esophagitis. Also found to have esophageal stricture at the time of EGD for food impaction. Follow-up EGD at this time to exclude stricture ring and possible dilatation. Continue anti-reflux measures. (2) Diverticulitis: Code(s): K57.92 - Diverticulitis of intestine, part unspecified, without perforation or abscess without bleeding Status: Ac
[2022-06-11 12:13] VITALS: BP 102/69; PULSE 81; RESP 22; O2SAT 100
[2022-06-11 12:23] VITALS: BP 124/74; PULSE 82; RESP 20; O2SAT 100
[2022-06-11 12:33] VITALS: BP 132/85; PULSE 84; RESP 18; O2SAT 100
== END 2022-06-11 12:51 | disposition home or self-care (01) ==
PROVIDERS: PCP Emergency Medicine; Visit Provider Internal Medicine Gastroenterology
PROC: 0DJ08ZZ Inspection of Upper Intestinal Tract, Via Natural or Artificial Opening Endoscopic (ICD-10-PCS; CPT 43235; principal; 2022-06-11 11:00)
DX: Z12.11 Encounter for screening for malignant neoplasm of colon (principal); K64.8 Other hemorrhoids; K57.30 Diverticulosis of large intestine without perforation or abscess without bleeding; Q39.4 Esophageal web; K21.9 Gastro-esophageal reflux disease without esophagitis; Z87.19 Personal history of other diseases of the digestive system; Z87.891 Personal history of nicotine dependence; E66.9 Obesity, unspecified; Z68.34 Body mass index [BMI] 34.0-34.9, adult
CPT/HCPCS: 45378; 43450; 43235; J2704; J7120

== ENCOUNTER 2022-09-10 07:14 | Outpatient (CLI) | payer BC, SELFPAY ==
--- NOTE | ~2022-09-10 | MM_ITS ---
EXAMINATION: MM screening andrés BI w sandy HISTORY: Screening mammogram TECHNIQUE: Craniocaudal and mediolateral oblique 3-D tomosynthesis images were obtained and synthetic 2-D images were generated. CAD analysis was submitted and interpreted. COMPARISON: None, baseline BREAST PARENCHYMAL COMPOSITION: The breasts are almost entirely fatty. FINDINGS: No suspicious mass, calcification, or architectural distortion are identified in either pat ast to suggest malignancy. IMPRESSION: 1. No mammographic evidence of malignancy. 2. Recommend routine screening mammography in one year. BI-RADS Category 1: Negative Reviewed, dictated and finalized at location A.
== END 2022-09-10 07:15 | disposition home or self-care (01) ==
LOC: ANHIMG 07:17
PROVIDERS: PCP Family Medicine; Visit Provider Family Medicine
DX: Z12.31 Encounter for screening mammogram for malignant neoplasm of breast (principal)
CPT/HCPCS: 77063; 77067

== ENCOUNTER 2022-12-01 11:29 | Emergency (ER) | payer SELFPAY ==
--- NOTE | ~2022-12-01 | CT_ITS ---
EXAMINATION: CT abdomen pelvis wo con DATE: 12/01/2022 11:59 INDICATION: Left flank pain. Left lower quadrant abdominal pain. TECHNIQUE: Computed tomography (CT) of the abdomen and pelvis was performed without intravenous contr ast. Automated exposure control and iterative reconstruction technique were employed. The dose-length product was 948.64 mGy-cm. COMPARISON: CT abdomen and pelvis 05/16/22, 06/05/20 FINDINGS: The visualized portions of the lung bases demonstrate mild atelectasis. Calcified left lung nodules and calcified left hilar and mediastinal lymph nodes are consistent with old granulomatous d isease. There are stable noncalcified nodules in left lower lobe measuring up to 6 mm, likely benign. No pleural effusion. The heart size is normal. No pericardial effusion. The liver is normal. There a re changes cholecystectomy. The spleen, pancreas, adrenal glands, and right kidney are normal. There is a 6 mm stone in left kidney. There is mild left hydronephrosis. There is a 2 mm stone in proximal left ureter. There is a 3.5 cm cyst in left ovary. There is diverticulosis of the colon without evide nce of diverticulitis. The appendix is normal. There are no pathologically enlarged lymph nodes. Ther e is no free intraperitoneal fluid. There is a 1.7 x 3.6 cm left inguinal lymph node. There are pins in right femoral head. There is severe lower lumbar spondylosis. IMPRESSION: 1. 2 mm stone in proximal left ureter with mild left hydronephrosis. 2. Nonobstructing left kidney stone. 3. 3.5 cm cyst in left ovary. Pelvis ultrasound is recommended. 4. Mildly enlarged left inguinal lymph node, stable from 05/16/22, but new from 06/05/20. This finding m ay be reactive. Reviewed, dictated and finalized at location B. IMPRESSION: 1. 2 mm stone in proximal left ureter with mild left hydronephrosis. 2. Nonobstructing left kidney stone. 3. 3.5 cm cyst in left ovary. Pelvis ultrasound is recommended. 4. Mildly enlarged left inguinal lymph node, stable from 05/16/22, but new from 06/05/20. This finding may be reactive.
[2022-12-01 11:33] VITALS: BP 146/86; PULSE 79; RESP 19; TEMP 36.6; O2SAT 96
[2022-12-01 11:39] VITALS: PULSE 79; RESP 16; O2SAT 94
[2022-12-01 11:44] VITALS: BP 146/86
--- NOTE | 2022-12-01 11:45 | ED.ABDPAIN ---
HPI - Abdominal Pain General Chief Complaint: Back Pain/Injury Stated Complaint: abdominal pain Time Seen by Provider: 12/01/22 11:32 History of Present Illness HPI narrative: 52-year-old female history of hypertension, dyslipidemia, diverticulitis presents to the emergency room for evaluation of a sudden onset of left flank pain that radiated into the pelvic area this morning. Patient states that she had an episode of nausea, that is since resolved. Denies any dysuria or hematuria. Denies constipation or diarrhea. Denies fevers. Related Data Home Medications Medication Instructions Recorded Confirmed Women's Multivitamin 1 tab-cap PO DAILY 05/28/22 09/24/22 Allergies Allergy/AdvReac Type Severity Reaction Status Date / Time cephalexin Allergy Mild MOUTH Verified 12/01/22 11:38 BLISTERS Penicillins Allergy Mild Unknown Verified 12/01/22 11:38 rosuvastatin AdvReac Intermediate Diarrhea Verified 12/01/22 11:38 Review of Systems Review of Systems: CONSTITUTIONAL: Denies fever, chills, or sweats. EYES: Denies visual changes, redness, or discharge. ENT: Denies rhinorrhea, congestion, sore throat, or otalgia. CARDIOVASCULAR: Denies chest pain, palpitations, or edema. RESPIRATORY: Denies cough or dyspnea. GASTROINTESTINAL: Reports flank pain, nausea GENITOURINARY: Denies dysuria or hematuria. SKIN: Denies rash or itching. MUSCULOSKELETAL: Denies back pain, joint pain, or myalgia. NEUROLOGIC: Denies headache, numbness, dizziness, or weakness. PSYCHIATRIC: Denies anxiety or depression. [facility] Past Medical History Medical History Ankle fracture, right Asthma Dysphagia Femur fracture, right No acute medical problems Obesity (BMI 30-39.9) Smoking history UTI (urinary tract infection) Surgical History Surgical History History of hysterectomy History of partial hysterectomy Open partial hysterectomy in 2006 Hx laparoscopic cholecystectomy 06/06/20 Status post ankle arthrodesis Status post open reduction and internal fixation (ORIF) of fracture Family History Family History Mother Gallbladder disease Other No acute medical problems Social History Social History (Updated 09/24/22 @ 08:58 by Lali Sam Social History: Partner Smoking packs per day: 0.5 Smoking cigarettes per day: 10.0 Years smoked: 7 Smoking pack-years: 3.50 Smoking status: Former smoker Tobacco type: cigarettes Second hand tobacco smoke exposure: No Alcohol intake: current Alcohol use details: rarely Substance use: never Substance use type: does not use Lack of Transportation: No Lack of Food: Never True Current Housing: I Have Housing Concerned About Future Housing: No Difficulty Paying Gas/Electric Bills: No Difficulty Paying for Meds: No Currently Unemployed: No Education: Decline to Answer Difficulty w/ Childcare or Family Care: No Living arrangements: with family Additional living arrangements comments: Patient lives at home with her boyfriend. She is not and has no children. Occupation/Education: occupation Additional occupation/education comments: Works for [employer] in the [employer]. Gender identity (if verbalized by the patient): Female Sexual Orientation (if Verbalized by the Patient): Straight or Heterosexual Spiritual care concerns: No Exam Narrative: GENERAL: Well-appearing, obese, well-nourished, no physical limitations, and in no acute distress. HEAD: Normocephalic, atraumatic. EYES: Conjunctivae normal, PERRLA and EOMI. CHEST: Clear to auscultation. No respiratory distress. No wheezes rales or rhonchi. HEART: Regular rate and rhythm. No murmur heard. Normal peripheral pulses. ABDOMEN: Soft, left lower quadrant tenderness, nondistended, normal active bowel sounds. BACK: Left CVA ten
[2022-12-01] MEDS: SODIUM CHLORIDE 0.9% IV 1,000 ML 500 ML IV CONT (11:49)
[2022-12-01 11:57] LABS: Basophils Absolute Auto 0.1 K/mm3 (0.0-0.1); Basophils Percent Auto 0.8 % (0.2-1.2); Eosinophils Absolute Auto 0.3 K/mm3 (0-0.3); Eosinophils Percent Auto 3.9 % (0-4.4); Hematocrit 40.7 % (37.0-47.0); Hemoglobin 13.1 g/dL (12.0-15.0); Immature Granulocyte Absolute 0.03 K/mm3 (0.00-0.031); Immature Granulocyte Percent A 0.4 % (0-0.5); Lymphocytes Absolute Auto 1.21 K/mm3 (0.9-3.2); Lymphocytes Percent Auto 14.4 % (18.3-44.2); Mean Corpuscular HGB Conc 32.2 g/dl (32-36); Mean Corpuscular Hemoglobin 28.9 pg (26-34); Mean Corpuscular Volume 89.6 fl (80-100); Mean Platelet Volume 10.1 fl (7.4-10.4); Monocytes Absolute Auto 0.5 K/mm3 (0.1-0.6); Monocytes Percent Auto 6.2 % (2.6-8.5); Neutrophils Absolute Auto 6.2 K/mm3 (1.3-6.7); Neutrophils Percent Auto 74.3 % (45.5-73.1); Platelet Count Result 324 k/mm3 (150-375); Red Blood Count 4.54 M/mm3 (4.2-5.4); Red Cell Distribution Width 14.4 % (11.5-14.5); White Blood Count 8.4 K/mm3 (4.5-10.0)
[2022-12-01 12:01] LABS: Appearance Urine Cloudy (Clear); Bacteria Urine None Seen /hpf; Bilirubin Urine Negative (Negative); Color Urine Yellow (Yellow); Glucose Urine UA Negative (Negative); Ketones Urine Negative (Negative); Leukocyte Esterase Ur 2+ LEU/UL (Negative); Nitrate Urine Negative (Negative); Non Pathogenic Casts 0-2; Protein Urine Negative (Negative); Specific Grav Ur 1.016 (1.001-1.035); Squamous Epithelial Cell Urine Occasional /hpf (Few); Urobilinogen Urine 0.2 mg/dL (<2.0); WBC Urine 51-100 /hpf
[2022-12-01 12:04] VITALS: PULSE 77; RESP 15; O2SAT 96
[2022-12-01 12:06] LABS: Alanine Aminotransferase 25 U/L (6-35); Albumin Level 4.6 g/dL (3.5-5.1); Alkaline Phosphatase 46 U/L (38-126); Anion Gap 8 mmol/L (8-16); Aspartate Amino Transferase 52 U/L (14-36); Bilirubin,Total 0.4 mg/dL (0.2-1.3); Blood Urea Nitrogen 14 mg/dL (7-17); Calcium 9.5 mg/dL (8.4-10.2); Carbon Dioxide 28 mmol/L (22-30); Chloride 105 mmol/L (98-107); Estimated CRCL calculation 83 ml/min; Estimated Glomerular Filt Rate > 60; Glucose 116 mg/dL (65-110); Lipase 138 U/L (23-300); Potassium 3.9 mmol/L (3.4-5.0); Sodium 141 mmol/L (137-145)
[2022-12-01 12:15] LABS: Add Urine Microscopic? YES
[2022-12-01] MEDS: HYDROmorphone HCL INJ (*CRX) 1 MG/ML SYR IV PUSH (12:42)
[2022-12-01 13:09] VITALS: BP 130/78; PULSE 83; RESP 20; O2SAT 95
== END 2022-12-01 13:10 | disposition home or self-care (01) ==
PROVIDERS: Emergency Provider Nurse Practitioner Family; PCP Family Medicine
DX: N20.0 Calculus of kidney (principal); J45.909 Unspecified asthma, uncomplicated
CPT/HCPCS: 36415; 74176; 80053; 81001; 83690; 85025; 87077; 87086; 87186; 96361; 96374; 99284; J1170; J7030

== ENCOUNTER 2023-01-23 18:09 | Emergency (ER) | payer BC, SELFPAY ==
[2023-01-23 18:21] VITALS: BP 116/62; PULSE 92; RESP 22; TEMP 35.7; O2SAT 100
--- NOTE | 2023-01-23 18:35 | ED.URI ---
HPI - URI/Sore Throat General Chief Complaint: Upper Respiratory Infection Stated Complaint: chills,face burning,weak History of Present Illness HPI Narrative: PATIENT PRESENTS WITH HOT FLASHES 1 MOMENT BEEN FEELING COLD THE NEXT. NO RUNNY NOSE NO COUGH NO OTHER COMPLAINTS VOICED. Related Data Home Medications Medication Instructions Recorded Confirmed Women's Multivitamin 1 tab-cap PO DAILY 05/28/22 09/24/22 Allergies Allergy/AdvReac Type Severity Reaction Status Date / Time cephalexin Allergy Mild MOUTH Verified 12/01/22 11:38 BLISTERS Penicillins Allergy Mild Unknown Verified 12/01/22 11:38 rosuvastatin AdvReac Intermediate Diarrhea Verified 12/01/22 11:38 Review of Systems Review of Systems: CONSTITUTIONAL: DENIES FEVER, CHILLS, OR SWEATS. EYES: DENIES VISUAL CHANGES, REDNESS, OR DISCHARGE. ENT: DENIES RHINORRHEA, CONGESTION, SORE THROAT, OR OTALGIA. CARDIOVASCULAR: DENIES CHEST PAIN, PALPITATIONS, OR EDEMA. RESPIRATORY: DENIES COUGH OR DYSPNEA. GASTROINTESTINAL: DENIES ABDOMINAL PAIN, NAUSEA, VOMITING, OR DIARRHEA. GENITOURINARY: DENIES DYSURIA OR HEMATURIA. SKIN: DENIES RASH OR ITCHING. MUSCULOSKELETAL: DENIES BACK PAIN, JOINT PAIN, OR MYALGIA. NEUROLOGIC: DENIES HEADACHE, NUMBNESS, OR WEAKNESS. PSYCHIATRIC: DENIES ANXIETY OR DEPRESSION. [facility] Past Medical History Medical History Ankle fracture, right Asthma Dysphagia Femur fracture, right No acute medical problems Obesity (BMI 30-39.9) Smoking history UTI (urinary tract infection) Surgical History Surgical History History of hysterectomy History of partial hysterectomy Open partial hysterectomy in 2006 Hx laparoscopic cholecystectomy 06/06/20 Status post ankle arthrodesis Status post open reduction and internal fixation (ORIF) of fracture Family History Family History Mother Gallbladder disease Other No acute medical problems Social History Social History (Updated 09/24/22 @ 08:58 by Lali Cervantes) Social History: Partner Smoking packs per day: 0.5 Smoking cigarettes per day: 10.0 Years smoked: 7 Smoking pack-years: 3.50 Smoking status: Former smoker Tobacco type: cigarettes Second hand tobacco smoke exposure: No Alcohol intake: current Alcohol use details: rarely Substance use: never Substance use type: does not use Lack of Transportation: No Lack of Food: Never True Current Housing: I Have Housing Concerned About Future Housing: No Difficulty Paying Gas/Electric Bills: No Difficulty Paying for Meds: No Currently Unemployed: No Education: Decline to Answer Difficulty w/ Childcare or Family Care: No Living arrangements: with family Additional living arrangements comments: Patient lives at home with her boyfriend. She is not and has no children. Occupation/Education: occupation Additional occupation/education comments: Works for [employer] in the [employer]. Gender identity (if verbalized by the patient): Female Sexual Orientation (if Verbalized by the Patient): Straight or Heterosexual Spiritual care concerns: No Comments AT TIME OF SIGNATURE, AGREE WITH NURSING PAST MEDICAL, SURGICAL, SOCIAL AND FAMILY HISTORY. THERE IS NO RELEVANT FAMILY HISTORY PERTINENT TO THE PRESENTING COMPLAINT Exam Narrative: GENERAL: WELL-APPEARING, WELL-NOURISHED, AND IN NO ACUTE DISTRESS. HEAD: NORMOCEPHALIC, ATRAUMATIC. EYES: PERRLA AND EOMI. ENT: NARES CLEAR, NO RHINORRHEA OR EPISTAXIS. MUCOUS MEMBRANES MOIST. NECK: SUPPLE. CHEST: CLEAR TO AUSCULTATION. NO RESPIRATORY DISTRESS. HEART: REGULAR RATE AND RHYTHM. NO MURMUR HEARD. NORMAL PERIPHERAL PULSES. ABDOMEN: SOFT, NONTENDER, NONDISTENDED, NORMAL ACTIVE BOWEL SOUNDS. EXTREMITIES: NORMAL RANGE OF MOTION. NO EDEMA. SKIN: WARM, DRY, NO RASH. NEURO: NO FOCAL DEFICITS. A
== END 2023-01-23 18:42 | disposition home or self-care (01) ==
PROVIDERS: Emergency Provider Nurse Practitioner Family; PCP Family Medicine
DX: Z71.1 Person with feared health complaint in whom no diagnosis is made (principal); Z87.891 Personal history of nicotine dependence; J45.909 Unspecified asthma, uncomplicated; E66.9 Obesity, unspecified
CPT/HCPCS: 99211; G0463

== ENCOUNTER 2023-01-27 16:52 | Outpatient (CLI) | payer BC, SELFPAY ==
--- NOTE | ~2023-01-27 | XR_ITS ---
EXAMINATION: XR chest 2V DATE: 01/27/2023 17:58 INDICATION: Chills TECHNIQUE: PA and lateral views of the chest were obtained. COMPARISON: Chest radiograph dated 05/20/[address] dated 12/01/2022 FINDINGS: Couple calcified nodules in the posterior basilar left lower lobe consistent with old granulomatous d isease. No other airspace opacities, pulmonary edema, pleural effusion or pneumothorax. The cardiomed iastinal silhouette is normal. Cholecystectomy clips in the right upper quadrant. Mild S-shaped curva ture of the thoracic spine with mild spondylosis. IMPRESSION: 1. No acute cardiopulmonary disease. Reviewed, dictated and finalized at location A.
[2023-01-27 17:30] LABS: Basophils Absolute Auto 0.1 K/mm3 (0.0-0.1); Basophils Percent Auto 1.1 % (0.2-1.2); Eosinophils Absolute Auto 0.3 K/mm3 (0-0.3); Eosinophils Percent Auto 5.6 % (0-4.4); Hematocrit 37.5 % (37.0-47.0); Hemoglobin 11.8 g/dL (12.0-15.0); Immature Granulocyte Absolute 0.02 K/mm3 (0.00-0.031); Immature Granulocyte Percent A 0.4 % (0-0.5); Lymphocytes Absolute Auto 1.29 K/mm3 (0.9-3.2); Lymphocytes Percent Auto 27.9 % (18.3-44.2); Mean Corpuscular HGB Conc 31.5 g/dl (32-36); Mean Corpuscular Hemoglobin 28.6 pg (26-34); Mean Corpuscular Volume 90.8 fl (80-100); Monocytes Absolute Auto 0.5 K/mm3 (0.1-0.6); Monocytes Percent Auto 9.9 % (2.6-8.5); Neutrophils Absolute Auto 2.6 K/mm3 (1.3-6.7); Neutrophils Percent Auto 55.1 % (45.5-73.1); Platelet Count Result 345 k/mm3 (150-375); Red Blood Count 4.13 M/mm3 (4.2-5.4); Red Cell Distribution Width 13.9 % (11.5-14.5); White Blood Count 4.6 K/mm3 (4.5-10.0)
[2023-01-27 17:50] LABS: Appearance Urine Cloudy (Clear); Bacteria Urine 4+ /hpf; Bilirubin Urine Negative (Negative); Blood Urine 1+ (Negative); Color Urine Yellow (Yellow); Glucose Urine UA Negative (Negative); Ketones Urine Negative (Negative); Leukocyte Esterase Ur 2+ LEU/UL (Negative); Nitrate Urine Negative (Negative); Non Pathogenic Casts 0-2; Protein Urine Trace mg/dL (Negative); Specific Grav Ur 1.016 (1.001-1.035); Squamous Epithelial Cell Urine None seen /hpf (Few); Urobilinogen Urine 0.2 mg/dL (<2.0); WBC Urine >100 /hpf; pH Urine 6.5 (5.0-9.0)
[2023-01-27 18:06] LABS: Add Urine Microscopic? YES
[2023-01-27 18:07] LABS: Alanine Aminotransferase 52 U/L (6-35); Albumin Level 4.3 g/dL (3.5-5.1); Alkaline Phosphatase 64 U/L (38-126); Anion Gap 6 mmol/L (8-16); Aspartate Amino Transferase 31 U/L (14-36); Bilirubin,Total 0.5 mg/dL (0.2-1.3); Blood Urea Nitrogen 12 mg/dL (7-17); Calcium 9.2 mg/dL (8.4-10.2); Carbon Dioxide 30 mmol/L (22-30); Chloride 104 mmol/L (98-107); Estimated Glomerular Filt Rate > 60; Glucose 106 mg/dL (65-110); Sodium 140 mmol/L (137-145)
== END 2023-01-27 16:53 | disposition home or self-care (01) ==
LOC: ANHLAB 16:55
PROVIDERS: PCP Family Medicine; Visit Provider Family Medicine
DX: R68.83 Chills (without fever) (principal)
CPT/HCPCS: 36415; 71046; 80053; 81001; 85025; 87086; 87088

== ENCOUNTER 2023-06-16 12:04 | Emergency (ER) | payer OTHER, BC, SELFPAY ==
--- NOTE | ~2023-06-16 | XR_ITS ---
EXAMINATION: XR hip LT 2V w AP pelvis DATE: 06/16/2023 14:57 INDICATION: Left hip pain. Fall. TECHNIQUE: An anteroposterior view of the pelvis and 2 views of left hip were obtained. COMPARISON: CT abdomen and pelvis 12/01/2022 FINDINGS: There is lumbar levocurvature. No fracture. There are 3 screws in right femoral head. There is mild osteoarthritis of the hips. IMPRESSION: 1. Mild osteoarthritis of the hips. Reviewed, dictated and finalized at location A. L OPERATOR
--- NOTE | ~2023-06-16 | XR_ITS ---
EXAMINATION: XR knee LT min 4V DATE: 06/16/2023 14:57 INDICATION: Left knee pain post fall onto concrete TECHNIQUE: Anteroposterior, 2 oblique and crosstable lateral views of the left knee were obtained COMPARISON: None. FINDINGS: Alignment is normal. No fracture. Joint spaces appear normal on nonweightbearing imaging with tiny m arginal osteophytes consistent with mild tricompartmental osteoarthritis. No joint effusion/layering lipohemarthrosis. Soft tissues are unremarkable. IMPRESSION: 1. Mild tricompartment osteophytes at the left knee. No acute osseous abnormality. Reviewed, dictated and finalized at location A. OYMENT MANAGER IMPRESSION: 1. Mild tricompartment osteophytes at the left knee. No acute osseous abnormali ty.
--- NOTE | ~2023-06-16 | XR_ITS ---
EXAMINATION: XR hand LT min 3V, XR wrist LT min 3V DATE: 06/16/2023 14:57 INDICATION: Left hand and wrist pain post fall TECHNIQUE: 1. Posteroanterior, ulnar deviation, oblique, and lateral views of the left wrist were obtained. 2. Dorsal palmar, oblique and lateral views of the left hand were obtained. COMPARISON: None. FINDINGS: Old healed fracture deformities at the base of the left fourth and fifth metacarpals. Alignment is ot herwise normal. No acute fracture. Polyarticular osteoarthritis, moderate severity at the second, thi rd and fourth distal interphalangeal joints and mild at the remaining interphalangeal joints, the fir st, third and fourth metacarpophalangeal joints, triscaphe and first carpal metacarpal joints. IMPRESSION: 1. Mild to moderate polyarticular osteoarthritis at the left hand. No acute osseous abnormality. Reviewed, dictated and finalized at location A. LANE PILOT CHIEF IMPRESSION: 1. Mild to moderate polyarticular osteoarthritis at the left hand. No acute oss eous abnormality.
[2023-06-16 13:08] VITALS: BP 149/86; PULSE 80; RESP 20; TEMP 36.4; O2SAT 100
--- NOTE | 2023-06-16 14:34 | ED.FALL ---
HPI - Fall General Chief Complaint: Fall Stated Complaint: fall Time Seen by Provider: 06/16/23 14:29 History of Present Illness HPI Narrative: Patient is a 53-year-old female who presents to the emergency department this afternoon after a that occurred at work. Patient states that they have floor stickers uses markers and she accidentally tripped over one and landed on her left side. Patient is currently complaining of left hand pain, left hip pain and left knee pain. Patient was ambulatory at the, however, per work protocol she was instructed to come for further evaluation. Patient is currently denying any headache and denies hitting her head and denies any additional injury or pain anywhere else, including chest pain or shortness of breath. There are no other modifying, alleviating, or precipitating factors at this time. The remainder of history of present illness and review of systems negative unless stated otherwise in HPI. Related Data Home Medications Medication Instructions Recorded Confirmed Women's Multivitamin 1 tab-cap PO DAILY 05/28/22 01/27/23 Allergies Allergy/AdvReac Type Severity Reaction Status Date / Time cephalexin Allergy Mild MOUTH Verified 01/27/23 15:42 BLISTERS Penicillins Allergy Mild Unknown Verified 01/27/23 15:42 rosuvastatin AdvReac Intermediate Diarrhea Verified 01/27/23 15:42 Review of Systems Review of Systems: All systems are reviewed and are negative unless stated otherwise in the HPI. [facility] Past Medical History Medical History Ankle fracture, right Asthma Dysphagia Femur fracture, right No acute medical problems Obesity (BMI 30-39.9) Smoking history UTI (urinary tract infection) Surgical History Surgical History History of hysterectomy History of partial hysterectomy Open partial hysterectomy in 2006 Hx laparoscopic cholecystectomy 06/06/20 Status post ankle arthrodesis Status post open reduction and internal fixation (ORIF) of fracture Family History Family History Mother Gallbladder disease Other No acute medical problems Social History Social History Social History: Partner Smoking packs per day: 0.5 Smoking cigarettes per day: 10.0 Years smoked: 7 Smoking pack-years: 3.50 Smoking status: Former smoker Tobacco type: cigarettes Second hand tobacco smoke exposure: No Alcohol intake: current Alcohol use details: rarely Substance use: never Substance use type: does not use Lack of Transportation: No Lack of Food: Never True Current Housing: I Have Housing Concerned About Future Housing: No Difficulty Paying Gas/Electric Bills: No Difficulty Paying for Meds: No Currently Unemployed: No Education: Decline to Answer Difficulty w/ Childcare or Family Care: No Living arrangements: with family Additional living arrangements comments: Patient lives at home with her boyfriend. She is not and has no children. Occupation/Education: occupation Additional occupation/education comments: [employer] Gender identity (if verbalized by the patient): Female Sexual Orientation (if Verbalized by the Patient): Lesbian, [place], or Homosexual Spiritual care concerns: No Exam Narrative: General: Alert, awake, afebrile, in no acute distress. HEENT: PERRL, no rhinorrhea, no post nasal drip, oropharynx clear. Neck: Trachea midline, no JVD, no lymphadenopathy. Cardiovascular: Regular rate and rhythm, no murmurs, rubs or gallops, no peripheral edema. Respiratory: Clear to auscultation bilaterally, no tachypnea, no wheezing, no rhonchi, no rubs, no respiratory distress. Abdomen: Soft, nontender, nondistended, no rebound, no guarding, no peritoneal signs. Musculoskeletal: No joint swelling or
== END 2023-06-16 15:46 | disposition home or self-care (01) ==
PROVIDERS: Emergency Provider Emergency Medicine; PCP Family Medicine
DX: S39.012A Strain of muscle, fascia and tendon of lower back, initial encounter (principal); J45.909 Unspecified asthma, uncomplicated; E66.9 Obesity, unspecified; Z68.32 Body mass index [BMI] 32.0-32.9, adult; Z87.440 Personal history of urinary (tract) infections; Z87.891 Personal history of nicotine dependence; Z90.711 Acquired absence of uterus with remaining cervical stump; Z90.49 Acquired absence of other specified parts of digestive tract; W18.09XA Striking against other object with subsequent fall, initial encounter
CPT/HCPCS: 73110; 73130; 73502; 73564; 99284

== ENCOUNTER 2025-04-24 10:31 | Outpatient (CLI) | payer OTHER, SELFPAY ==
--- NOTE | ~2025-04-24 | MM_ITS ---
EXAMINATION: MM screening andrés BI w sandy HISTORY: Screening TECHNIQUE: Craniocaudal and mediolateral oblique 3-D tomosynthesis images were obtained and synthetic 2-D images were generated. CAD analysis was submitted and interpreted. COMPARISON: 09/10/2022 BREAST PARENCHYMAL COMPOSITION: Not Dense: The breasts are almost entirely fatty. FINDINGS: There is no evidence of suspicious mass, calcification, or architectural distortion to suggest malignancy in either breast. There has been no suspicious interval change. IMPRESSION: 1. No mammographic evidence of malignancy. 2. Recommend routine screening mammography in one year. BI-RADS Category 1: Negative Reviewed, dictated and finalized at location O. 

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
--- OUTSIDE RECORDS SUMMARY | 2025-04-24 10:36 | XMS_ITS | Clinical Summary ---
Author Organization [facility] Address [address] [place] [address] Care Team Providers Care Paid Internship Name Role Phone Jacqueline Amaya MD Primary Care Provider + Source Comments [facility],non-owned Affiliates and Associated Physician Practices is amultiple site organization consisting of ambulatory clinics and hospital sitesin [place], [place], [place] and [place]. This disclosure is being madepursuant to the Care Everywhere program and may not contain all information available regarding this patient. Last updated 18.[facility] Allergies Active Allergy Reactions Criticality Noted Date Comments Cephalexin Other Medium 07/13/2015 Mouth blisters Mouth broke out Penicillins Urticaria Medium 05/04/2018 Medications * Be aware that medications may not be up to date on this document. Alwaysverify current medications with the patient. pantoprazole EC (Protonix) 40 MG tablet Take 1 (one) tablet by mouth every morning 09/14/2022 Active sodium chloride (Potter; Baby [place]) 0.65 % nasal spray [place] 2 (two) sprays into each nostril 4 times daily 60 mL 11/17/2023 Active Active Problems Problem Noted Date Diagnosed Date Dysphagia 11/15/2023 Laryngopharyngeal reflux 11/15/2023 Immunizations Immunization Administration Dates Next Due INFLUENZA VACCINE, CELL CULT URE, QUADR. (FLUCELVAX QUADRIVALENT; 6MO+) (CCIIV4) 02/18/2022,02/13/2019 TDAP (7yrs+) 10/25/2016 Social History Tobacco Use Types Packs/Day Years Used Date Smoking Tobacco: Former Cigarettes 1 10 Smokeless Tobacco: Never Tobacco Cessation:Counseling Given: Not Answered Alcohol Use Standard Drinks/Week Comments Yes 0 (1 standard drink = 0.6 oz pur e alcohol) rarely AUDIT-C Answer Date Recorded Q1: How often do you have a drink containing alc ohol? 2-4 times a month 11/17/2023 Average Number of Drinks Not on file 024 Q3: How often do you have si x or more drinks on one occasion? 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 Gender Identity Not on file Sexual Orientation Not on file Last Filed Vital Signs Vital Sign Reading Time Taken Comments Blood Pressure 152/89 01/16/2024 9:48 AM CDT Pulse 69 01/16/2024 9:48 AM CDT Temperature 36.3 C (97.4 F) 11/17/2023 2:56 PM CDT Respiratory Rate 20 11/17/2023 3:20 PM CDT Oxygen Saturation 96% 11/17/2023 3:20 PM CDT Inhaled Oxygen Concentration - - Weight 97.1 kg (214 lb) 01/16/2024 9:48 AM CDT Height 157.5 cm (5' 2) 01/16/2024 9:48 AM CDT Body Mass Index 39.14 01/16/2024 9:48 AM CDT Plan of Treatment Health Maintenance Due Date Last Done Comments COLOGUARD (AGES 45-75) - COL ON CA SCREENING 1968 COLON MONITORING 1968 COLONOSCOPY - COLON CA SCREENING 1968 CT COLONOGRAPHY - COLON CA SCREENING 1968 Colorectal Cancer Screening 1968 FIT - COLON CA SCREENING 1968 FLEX SIG - COLON CA SCREENING 1968 LIPID TESTING 1968 MAMMOGRAM 1968 HIV SCREENING 1983 HEPATITIS C SCREENING 05/31/1986 HEPATITIS B VACCINE (1 of 3 - 19+ 3-dose series) 1987 PNEUMOCOCCAL VACCINE 50+ (1 of 1 - PCV) 2018 ZOSTER VACCINE (1 of 2) 2018 SCREENING FOR DIABETES 11/01/2022 DEPRESSION SCREENING 05/02/2024 COVID-19 VACCINE (2024-2 6 season) 2024 01/07/2022, 07/09/2020 INFLUENZA VACCINE (#1) 2024 , 02/13/2019 DTAP/TDAP/TD VACCINES (2 - T d or Tdap) 10/25/2026 10/25/2016 HIB VACCINE Aged Out No longer eligi ble based on patient's age to complete this topic HPV VACCINE Aged Out No longer eligi ble based on patient's age to complete this topic MENINGOCOCCAL (Group B) VACCINE SHARED DECISION-MAKING Aged Out No longer eligible based on patient's age to complete this topic MENINGOCOCCAL GROUPS A/C/Y/W VACCINE Aged Out No longer eligible b ased on patient's age to complete this topic Medical Devices Implanted Type 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
--- OUTSIDE RECORDS SUMMARY | 2025-04-24 10:36 | XMS_ITS | Clinical Summary ---
Author Organization [facility] Address [address] [place] [address] Phone Care Team Providers Care Senior Speech Pathologist Name Role Phone Provider, None Primary Care Provider Unavailabl e Allergies Active Allergy Reactions Criticality Noted Date Comments Cephalexin Other (see Comments) 07/13/2015 Mouth broke out Penicillins Hives Medications omeprazole (PRILOSEC) 40 MG CAPSULE DELAYED RELEASE Take 1 Cap by mouth daily (with breakfast). 30 Cap 5 10/23/2015 Active famotidine (PEPCID) 20 MG Tablet Take 1 Tab by mouth every evening. 30 Tab 10 10/23/2015 Active Active Problems Problem Noted Date Diagnosed Date Laryngopharyngeal reflux Dysphagia Immunizations Immunization Administration Dates Next Due TDAP Vaccine 10/25/2016 Family History Medical History Relation Name Comments Lupus Mother Relation Name Status Comments Mother Social History Tobacco Use Types Packs/Day Years Used Date Smoking Tobacco: Never Smokeless Tobacco: Never Alcohol Use Standard Drinks/Week Comments No 0 (1 standard drink = 0.6 oz pur e alcohol) Comments No Sex and Gender Information Value Date Recorded Sex Assigned at Not on file Legal Sex Female 12:26 AM CDT Gender Identity Not on file Sexual Orientation Not on file Last Filed Vital Signs Vital Sign Reading Time Taken Comments Blood Pressure 124/83 11/01/2016 11:44 AM CDT Pulse 76 11/01/2016 11:44 AM CDT Temperature 36 C (96.8 F) 11/01/2016 11:44 AM CDT Respiratory Rate 20 11/01/2016 11:44 AM CDT Oxygen Saturation 95% 11/01/2016 11:44 AM CDT Inhaled Oxygen Concentration - - Weight 83.9 kg (185 lb) 11/01/2016 11:44 AM CDT Height 157.5 cm (5' 2) 11/01/2016 11:44 AM CDT Body Mass Index 33.84 11/01/2016 11:44 AM CDT Plan of Treatment Health Maintenance Due Date Last Done Comments Hepatitis C Virus (HCV) Screening 1968 Hepatitis B Immunization (1 of 3 - 19+ 3-dose series) 1987 Cologuard 2013 Colonoscopy 2013 Colorectal Cancer Screening 2013 Immunochemical Fecal Occult Blood 2013 Pneumococcal Immunization (5 0+ years) (1 of 1 - PCV) 2018 Zoster Immunization (1 of 2) 2018 Influenza Immunization (#1) 2024 SARS-COV-2 Immunization (1 - 2023- season) 2024 Respiratory Syncytial Virus (RSV) Immunization (Adult) (1 - 1-dose 75+ series) 2043 DTaP/Tdap/Td Immunization Discontinued 10/25/2016 Human Papillomavirus (HPV) Immunization Aged Out No longer eligible b ased on patient's age to complete this topic Meningococcal Immunization (ACWY) Aged Out No longer eligible based on patient's age to complete this topic Rotavirus Immunization Aged Out No lo nger eligible based on patient's age to complete this topic Insurance [employer] [id number] , [address] [place] [address] Care Teams Senior Speech Pathologist Relationship Specialty Start Date End Date Provider, None [place] PCP - General 07/14/15
== END 2025-04-24 10:32 | disposition home or self-care (01) ==
LOC: ANHFOHIMG 10:34
PROVIDERS: PCP Internal Medicine; Visit Provider Internal Medicine
DX: Z12.31 Encounter for screening mammogram for malignant neoplasm of breast (principal)
CPT/HCPCS: 77063; 77067